=== PATIENT | female | born 1955 | race Asian ===

== ENCOUNTER 2020-02-13 11:10 | Outpatient (REF) | payer MEDICARE, MEDICAID, SELFPAY ==
[2020-02-13 13:27] LABS: Alanine Aminotransferase 13 U/L (0-31); Albumin Level 4.4 g/dL (3.5-5.0); Alkaline Phosphatase 50 U/L (39-117); Anion Gap 12 (12-20); Aspartate Amino Transferase 13 U/L (5-31); Bilirubin Total 0.3 mg/dL (0.0-1.0); Blood Urea Nitrogen 11 mg/dL (9-16); Calcium 9.3 mg/dL (8.4-10.2); Carbon Dioxide 28 mmol/L (22-29); Chloride 105 mmol/L (96-108); Cholesterol 286 mg/dL; Estimated Glomerular Filt Rate > 60; Glucose Fasting 98 mg/dL (60-99); HDL Cholesterol 37 mg/dL; LDL Cholesterol Calculated 211 mg/dl; Potassium 4.7 mmol/l (3.3-5.1); Sodium 140 mmol/L (135-145); Total Protein 6.5 g/dL (6.5-8.0); Triglycerides 192 mg/dL
== END 2020-02-13 11:11 | disposition home or self-care (01) ==
LOC: HO.LAB 11:10
PROVIDERS: PCP Internal Medicine; Visit Provider Internal Medicine
DX: E78.00 Pure hypercholesterolemia, unspecified (principal)
CPT/HCPCS: 36415; 80053; 80061

== ENCOUNTER → 2020-02-19 10:39 | Outpatient (BNVA) | payer MEDICARE, MEDICAID, SELFPAY | PROVIDERS: PCP Internal Medicine; Visit Provider Surgery | DX: Z86.000 Personal history of in-situ neoplasm of breast (principal); Z90.11 Acquired absence of right breast and nipple | CPT/HCPCS: 99213 ==

== ENCOUNTER 2020-07-09 11:22 | Outpatient (REF) | payer MEDICARE, MEDICAID, SELFPAY ==
[2020-07-09 13:47] LABS: Alanine Aminotransferase 15 U/L (0-31); Albumin Level 4.2 g/dL (3.5-5.0); Alkaline Phosphatase 50 U/L (39-117); Anion Gap 13 (12-20); Aspartate Amino Transferase 13 U/L (5-31); Bilirubin Total 0.4 mg/dL (0.0-1.0); Blood Urea Nitrogen 15 mg/dL (9-16); Calcium 8.8 mg/dL (8.4-10.2); Carbon Dioxide 25 mmol/L (22-29); Chloride 104 mmol/L (96-108); Cholesterol 157 mg/dL; Estimated Glomerular Filt Rate > 60; Glucose Fasting 106 mg/dL (60-99); HDL Cholesterol 36 mg/dL; LDL Cholesterol Calculated 95 mg/dl; Potassium 4.8 mmol/L (3.3-5.1); Sodium 137 mmol/L (135-145); Total Protein 6.2 g/dL (6.5-8.0); Triglycerides 133 mg/dL
== END 2020-07-09 11:23 | disposition home or self-care (01) ==
LOC: HO.LAB 11:22
PROVIDERS: PCP Internal Medicine; Visit Provider Internal Medicine
DX: E78.5 Hyperlipidemia, unspecified (principal)
CPT/HCPCS: 36415; 80053; 80061

== ENCOUNTER 2021-01-06 11:14 | Outpatient (REF) | payer MEDICARE, MEDICAID, SELFPAY ==
[2021-01-06 12:37] LABS: Alanine Aminotransferase 21 U/L (0-31); Albumin Level 4.2 g/dL (3.5-5.0); Alkaline Phosphatase 50 U/L (39-117); Anion Gap 11 (12-20); Aspartate Amino Transferase 15 U/L (5-31); Bilirubin Total 0.4 mg/dL (0.0-1.0); Blood Urea Nitrogen 9 mg/dL (9-16); Calcium 9.2 mg/dL (8.4-10.2); Carbon Dioxide 27 mmol/L (22-29); Chloride 109 mmol/L (96-108); Cholesterol 151 mg/dL; Estimated Glomerular Filt Rate > 60; Glucose Fasting 116 mg/dL (60-99); HDL Cholesterol 37 mg/dL; LDL Cholesterol Calculated 89 mg/dl; Potassium 4.9 mmol/L (3.3-5.1); Sodium 142 mmol/L (135-145); Total Protein 6.2 g/dL (6.5-8.0); Triglycerides 129 mg/dL
== END 2021-01-06 11:15 | disposition home or self-care (01) ==
LOC: HO.LAB 11:14
PROVIDERS: PCP Internal Medicine; Visit Provider Internal Medicine
DX: E78.5 Hyperlipidemia, unspecified (principal)
CPT/HCPCS: 36415; 80053; 80061

== ENCOUNTER 2021-03-08 11:57 | Outpatient (REF) | payer MEDICARE, MEDICAID, SELFPAY ==
--- NOTE | ~2021-03-08 | MM_ITS ---
EXAMINATION: MM SCREENING DIGITAL BREAST TOMOSYNTHESIS, LEFT CLINICAL INFORMATION: Screening. Asymptomatic. Status post right mastectomy. COMPARISON: Mammography: 01/30/2020 and studies dating back to 06/01/2011. TECHNIQUE: Digital breast tomosynthesis is performed in both the craniocaudal and mediolateral oblique views along with computer-aided detection (CAD). Synthesized 2D images are generated from the tomosynthesis. FINDINGS: The breasts are heterogeneously dense, which may obscure small masses (ACR BI-RADS breast composition Category c). There is a stable parenchymal pattern within the right breast. Within the deep lateral aspect of the left breast, approximately 3 cm from the nipple, there is a 9 mm ill-defined density for which spot compression view is recommended. MM/MM tomosynthesis screening LT IMPRESSION: Left breast lateral density for further evaluation. ASSESSMENT: BI-RADS 0: Incomplete - Need Additional Imaging Evaluation RECOMMENDATION: 1. Additional views of the left breast. 2. Targeted ultrasound if warranted after review of the additional views. 3. Radiology department staff will contact the patient for additional imaging. This patient's information was entered into a reminder system with a target due date for their next mammogram.
== END 2021-03-08 11:58 | disposition home or self-care (01) ==
LOC: HO.MAMMO 11:57
PROVIDERS: Visit Provider Internal Medicine
DX: Z12.31 Encounter for screening mammogram for malignant neoplasm of breast (principal)
CPT/HCPCS: 77063; 77067

== ENCOUNTER 2021-03-17 14:02 | Outpatient (REF) | payer MEDICARE, MEDICAID, SELFPAY ==
--- NOTE | ~2021-03-17 | MM_ITS ---
EXAMINATION: MM DIAGNOSTIC DIGITAL BREAST TOMOSYNTHESIS, LEFT US DIAGNOSTIC ULTRASOUND BREAST, LEFT CLINICAL INFORMATION: Recall from screening for asymmetric density outer left breast on CC view. Prior history right mastectomy for breast cancer, 2009. History benign left excisional biopsy in 2010. COMPARISON: Mammography: 03/08/2021, 01/30/2020, 08/19/2018, 08/08/2018, 08/06/2017, 06/17/2016, 06/14/2015, 06/10/2014, 06/09/2013 TECHNIQUE: Digital breast tomosynthesis is performed. 2D images are generated from the tomosynthesis. The following views are obtained: rolled CC, spot CC. Ultrasound left breast is targeted to the outer quadrants 1:00 through 5:00 position. Grayscale imaging and color Doppler are performed without and with harmonics. FINDINGS: There are scattered areas of fibroglandular density (ACR BI-RADS breast composition Category b). The additional views show scattered fibroglandular densities similar to prior exams dating back to 2013. There is no developing density or interval mass or architectural abnormality. Ultrasound demonstrates no cystic or solid mass or architectural abnormality. No focal duct ectasia. Results are discussed with the patient and family at time of visit. MM/MM tomosynthesis added views L IMPRESSION: Additional views show no significant changes from prior exams. Unremarkable targeted left breast ultrasound. ASSESSMENT: BI-RADS 2: Benign RECOMMENDATION: Annual mammography. This patient's information was entered into a reminder system with a target due date for their next mammogram.
== END 2021-03-17 14:03 | disposition home or self-care (01) ==
LOC: HO.MAMMO 14:02
PROVIDERS: Visit Provider Internal Medicine
DX: R92.2 Inconclusive mammogram (principal)
CPT/HCPCS: 76642; 77061; 77065

== ENCOUNTER → 2021-04-21 12:55 | Outpatient (BNVA) | payer MEDICARE, MEDICAID, SELFPAY | PROVIDERS: PCP Internal Medicine; Referring Provider Internal Medicine; Visit Provider Surgery | DX: Z90.11 Acquired absence of right breast and nipple (principal) | CPT/HCPCS: 99212 ==

== ENCOUNTER 2021-09-16 10:33 | Outpatient (REF) | payer MEDICARE, MEDICAID, SELFPAY ==
[2021-09-16 11:41] LABS: Alanine Aminotransferase 16 U/L (0-31); Alkaline Phosphatase 46 U/L (39-117); Anion Gap 10 (12-20); Aspartate Amino Transferase 14 U/L (5-31); Bilirubin Total 0.2 mg/dL (0.0-1.0); Blood Urea Nitrogen 20 mg/dL (9-16); Calcium 9.1 mg/dL (8.4-10.2); Carbon Dioxide 26 mmol/L (22-29); Chloride 108 mmol/L (96-108); Cholesterol 142 mg/dL; Estimated Glomerular Filt Rate > 60; Glucose Fasting 125 mg/dL (60-99); HDL Cholesterol 37 mg/dL; LDL Cholesterol Calculated 85 mg/dl; Potassium 4.8 mmol/L (3.3-5.1); Sodium 139 mmol/L (135-145); Total Protein 6.1 g/dL (6.5-8.0); Triglycerides 102 mg/dL
== END 2021-09-16 10:34 | disposition home or self-care (01) ==
LOC: HO.LAB 10:33
PROVIDERS: PCP Internal Medicine; Visit Provider Internal Medicine
DX: R73.02 Impaired glucose tolerance (oral) (principal); E78.5 Hyperlipidemia, unspecified
CPT/HCPCS: 36415; 80053; 80061

== ENCOUNTER 2021-11-10 08:37 | Outpatient (REF) | payer MEDICARE, MEDICAID, SELFPAY ==
--- NOTE | ~2021-11-10 | XR_ITS ---
EXAMINATION: XR KNEE, RIGHT CLINICAL INFORMATION: Pain right knee. COMPARISON: None TECHNIQUE: Four views of the right knee. FINDINGS: The tricompartment joints are maintained normal. There is spurring along the anterior superior patella. No abnormal joint effusion seen. There are no loose bodies. XR/XR knee RT 2V IMPRESSION: Anterior superior patellar enthesophyte. No visible acute fracture or dislocation seen.
== END 2021-11-10 08:38 | disposition home or self-care (01) ==
LOC: HO.XRAY 08:37
PROVIDERS: PCP Internal Medicine; Visit Provider Internal Medicine
DX: M25.561 Pain in right knee (principal)
CPT/HCPCS: 73560

== ENCOUNTER 2021-11-19 13:57 | Inpatient (IN) | payer MEDICARE, MEDICAID, SELFPAY ==
[2021-11-19] VITALS (8 sets, daily range): BP systolic 94–123; BP diastolic 43–82; PULSE 67–88; RESP 13–28; TEMP 36.8–38.4; O2SAT 96–99; BMI 22.6
--- NOTE | ~2021-11-19 | CT_ITS ---
EXAMINATION: CT ABDOMEN AND PELVIS WITHOUT CONTRAST CLINICAL INFORMATION: Diffuse abdominal pain. Nausea and vomiting. COMPARISON: Pelvic ultrasound 11/16/2010 TECHNIQUE: Multidetector volumetric imaging was performed from the superior aspect of the liver through the pubic symphysis. Sagittal and coronal reformatted images were obtained on the technologist's workstation. This CT examination was performed using dose optimization techniques as appropriate, variously including the following: *Automated exposure control *Adjustment of mA and/or kV according to patient size (this includes techniques or standardized protocols for targeted exams where dose is matched to indication/reason for exam; i.e. extremities or head) *Use of iterative reconstruction technique DLP: 368 mGy-cm FINDINGS: LUNG BASES: Partial visualization of at least mild scattered coronary artery calcific atherosclerosis. Normal heart size. No pericardial thickening or fluid collections. The visualized lung bases are clear. LIVER, GALLBLADDER, AND BILIARY TREE: The liver is normal in size, shape, and attenuation. No focal hepatic lesion or biliary ductal dilatation is present. Vague density is noted dependently within the body and fundus of the gallbladder (series 3 image 29). Findings may represent partial visualization of cholelithiasis. No pericholecystic fluid collections identified. No biliary duct dilatation visualized. PANCREAS: Unremarkable. SPLEEN: Unremarkable. ADRENAL GLANDS: Unremarkable. KIDNEYS AND URETERS: No hydronephrosis or perinephric inflammatory changes. No urolithiasis. No ureterectasis. BLADDER: Diffuse mural thickening of the urinary bladder (series 5 image 31) to a width of approximately 5 mm. No urinary bladder calculi. GASTROINTESTINAL TRACT: The appendix is not definitively visualized. A structure which may represent partial visualization of the appendix is noted (series 3 image 66, series 5 image 32). No pericecal inflammatory changes are noted. Trace physiologic free intraperitoneal fluid is present within the pelvis. No colonic diverticulosis noted. The lower abdominal quadrants are suboptimally visualized secondary to motion artifact (for example, series 3 image 54) ABDOMINAL WALL: No significant hernia is appreciated. LYMPH NODES: Normal. VASCULAR: Mild to moderate scattered calcific atherosclerosis. PELVIC VISCERA: Uterus demonstrates a bulky multilobulated contour with areas of scattered dystrophic calcification suspicious for fibroids. OSSEOUS STRUCTURES: Mild-moderate multilevel chronic spondylosis of the visualized thoracic and lumbar spine. Partial visualization of a moderate broad-based disc bulge at L5-S1. CT/CT abdomen pelvis wo con IMPRESSION: *Diffuse mural thickening of the urinary bladder. Findings may represent acute infectious cystitis. Chronic cystitis cystica could have a similar appearance. *No hydronephrosis. No urolithiasis. *The appendix is not visualized. The lower abdominal quadrants are suboptimally visualized secondary to motion artifact and this exam may be insensitive in the detection of acute appendicitis. *Fibroid uterus. *Multilevel chronic spondylosis of the visualized thoracic and lumbar spine including a partially visualized moderate posterior broad-based disc bulge L5-S1. *Possible cholelithiasis.
[2021-11-19 15:12] LABS: Hematocrit 30.9 % (37.0-47.0); Hemoglobin 10.6 g/dl (12.0-16.0); Mean Corpuscular HGB Conc 34.3 g/dl (31.0-35.0); Mean Corpuscular Hemoglobin 29.4 pg (27.0-33.0); Mean Corpuscular Volume 85.8 fL (80.0-98.0); Mean Platelet Volume 9.6 fL (9.4-12.3); Platelet Count 291 X10*3/uL (160-400); Red Cell Distribution Width 13.2 % (11.0-16.0); White Blood Count 14.4 X10*3/uL (4.8-10.8)
[2021-11-19 15:30] LABS: Anion Gap 14 (12-20); Blood Urea Nitrogen 12 mg/dL (9-16); Calcium 8.4 mg/dL (8.4-10.2); Carbon Dioxide 22 mmol/L (22-29); Chloride 98 mmol/L (96-108); Creatinine Clr Calc Pharmacy 48.7; Estimated Glomerular Filt Rate > 60; Glucose Random 275 mg/dL (60-115); Lipase 15 U/L (8-78); Potassium 4.7 mmol/L (3.3-5.1); Sodium 129 mmol/L (135-145)
--- NOTE | 2021-11-19 17:53 | ED.ABDPAIN ---
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 No diarrhea, constipation, urinary symptoms. Patient reports tactile temps and chills. Patient denies any alcohol use. Related Data Home Medications Medication Instructions Recorded Confirmed celecoxib 100 mg capsule 100 mg PO BID PRN Pain 11/19/21 11/19/21 ibuprofen 600 mg tablet 1 tab PO Q6-8H PRN Pain 11/19/21 11/19/21 simvastatin 40 mg tablet 1 tab PO BEDTIME 11/19/21 11/19/21 Allergies Allergy/AdvReac Type Severity Reaction Status Date / Time aspirin [Aspirin] Allergy Intermediate GI UPSET Verified 11/11/21 14:28 Review of Systems Review of Systems Yes all other systems are reviewed and are negative Constitutional: Reports no additional constitutional complaints, Denies body ache(s), Reports chills, Reports fever(s) (tactile), Denies headache(s) and Denies weakness Eyes: Reports no additional eye complaints and Denies change in vision Reports system reviewed and no additional complaints, except as documented, Denies dizziness, Denies headache(s), Denies nasal congestion, Denies nasal discharge and Denies neck pain Cardiovascular: Reports no additional cardiovascular complaints, Denies chest pain, Denies leg edema and Denies dyspnea Respiratory: Reports no additional respiratory complaints, Denies cough and Denies dyspnea Gastrointestinal: Reports no additional gastrointestinal complaints, Reports abdominal pain, Denies diarrhea, Reports nausea and Reports vomiting Genitourinary: Reports no additional female genitourinary complaints and Denies urinary incontinence Musculoskeletal: Reports no additional musculoskeletal complaints, Denies back pain, Denies arthralgias, Denies joint swelling, Denies neck pain, Denies numbness and Denies tingling Skin/Breast: Reports system reviewed and no additional complaints, except as docu and Denies rash Reports system reviewed and no additional complaints, except as documented, Denies dizziness, Denies headache(s), Denies numbness, Denies tingling and Denies weakness [facility] Past Medical History Attestation statement: The following information was validated with the patient. Source: old records reviewed and nursing notes reviewed Medical History Anxiety Ductal carcinoma in situ (DCIS) of right breast Dyslipidemia Effusion, right knee Impaired glucose tolerance Insomnia Mild major depression, single episode Surgical History History of lumpectomy of right breast History of total abdominal hysterectomy Family History Family History Mother Diabetes Father No problems noted. Brother No problems noted. Brother No problems noted. Brother No problems noted. Sister No problems noted. Social History Social History Housing: Apartment Alcohol intake: never Patient Tobacco Use Status: Never used Tobacco e-Cigarette/Vaping Use: Never Used Second Hand Smoke Exposure: No Advance Directives: No Advance Directives Information Provided: No service: No Current occupational status: employed Current occupational exposures/hazards: No Cognitive needs: No Hearing needs: No Vision needs: No Physical Exam ED Vital Signs: Vital Signs - 24 hr 11/19/21 14:15 11/19/21 18:20 11/19/21 18:40 Temperature 98.2 F 101.1 F H Pulse Rate 88 88 80 Respiratory Rate 18 24 H 28 H Blood Pressure 123/82 119/47 L 106/49 L Pulse Oximetry 97 99 98 Oxygen Delivery Method Room Air Room Air Room Air 11/19/21 19:34 11/19/21 20:35 11/19/21 20:52 Temperature 99.9 F Pulse Rate 68 67 Respiratory Rate 22 H 24 H Blood Pressure 99/43 L 94/46 L 101/47 L Pulse Oximetry 96 96 Oxygen Delivery Method Room Air Room Air BMI result Body Mass Index 22.6 Const Other: +in pain General: alert Orientation/consciousness: patient oriented x3 Limitations: language barrier HENMT Head: Yes normal to inspection Ears: hearing grossly normal bilaterally Eyes General: appearance normal, both eyes and all related structures Pupils: Equal, round and reactive pupils present Neck Neck: Yes normal visual inspection, Yes full ROM and Yes no lymphadenopathy Chest Chest palpation & inspection: normal inspection of the chest Resp Effort & Inspection: normal respiratory effort Auscultation: clear to auscultation bilaterally Cardio Rate: regular rate Rhythm: regular rhythm Peripheral pulses: Peripheral pulses 2+ throughout GI Inspection: Yes normal to inspection Palpation (GI): Soft to palpation and Tenderness to palpation present (GI) (Diffusely tender. +guarding. No rebound ) Auscultation: normal bowel sounds General: Yes no CVA tenderness Back/Spine/Pelvis Back: no CVA tenderness Thoracic/Lumbar Spine: thoracic and lumbar spine normal to inspection Skin General skin exam: no rashes or lesions noted Neuro General: patient oriented x3 and moves all extremities Cranial nerves: Yes Equal, round and reactive pupils present Cognition (Neuro): normal cognition Gait exam (Neuro): Normal gait present Extrem General: Yes normal to inspection, Yes no pedal edema and Yes no calf tenderness Course Course Course Narrative: 1830-patient has fever 101. She has tachypnea. At this time infection suspected. Antibiotics ordered Reevaluation(s) Reevaluation #1: Nursing informed me that the patient had a blood pressure of 99/43. Patient to receive a normal saline bolus 30 cc/kilos for total 1600ml. She did receive 1 L of saline already. Will give additional 600 mL. Nursing to recheck blood pressure post fluids Time: 19:45 Reevaluation #2: Blood pressure is 101/47. Fluids are still infusing. Patient tells me her normal blood pressure is 100 systolic. Family tells me for the last 3 days the patient has had very little p.o. intake. She has also been vomiting and they were concerned that she is dehydrated. Blood pressure is likely secondary to dehydration. CT is concerning for cystitis. UA is infected. Patient will need admission Time: 20:50 Reevaluation #3: I spoke to Dr. Kumar who accepted patient for admission Time: 21:00 MDM - Abdominal Pain MDM Narrative Medical decision making narrative: 66-year-old female here with diffuse abdominal pain, vomiting for 3 days with tactile temps and chills. On exam patient has diffuse tenderness with some guarding but no rebound. Will need labs, UA, CT, COVID screen Medical Records Attestation: I reviewed the patient's medical records. Lab Data Attestation: I reviewed the patient's lab results. Result diagrams: 11/19/21 14:44 11/19/21 14:44 Labs: Lab Results 11/19/21 11/19/21 11/19/21 Range/Units 14:44 14:44 18:00 WBC 14.4 H (4.8-10.8) X10*3/uL RBC 3.60 L (4.20-5.50) X10*6/uL Hgb 10.6 L (12.0-16.0) g/dl Hct 30.9 L (37.0-47.0) % MCV 85.8 (80.0-98.0) fL MCH 29.4 (27.0-33.0) pg MCHC 34.3 (31.0-35.0) g/dl RDW 13.2 (11.0-16.0) % Plt Count 291 (160-400) X10*3/uL MPV 9.6 (9.4-12.3) fL Absolute Nucleated RBC 0.000 (0.0-0.012) X10*3/uL Nucleated RBC % (auto) 0.0 (0.0-0.2) /100WBC PT (10.0-13.1) SEC INR (0.9-1.1) Sodium 129 L (135-145) mmol/L Potassium 4.7 (3.3-5.1) mmol/L Chloride 98 (96-108) mmol/L Carbon Dioxide 22 (22-29) mmol/L Anion Gap 14 (12-20) BUN 12 (9-16) mg/dL Creatinine 0.88 (0.5-1.4) mg/dL Estim Creat Clear Calc 48.7 Estimated GFR > 60 Random Glucose 275 H (60-115) mg/dL Lactic Acid (0.5-2.0) mmol/L Calcium 8.4 D (8.4-10.2) mg/dL Magnesium (1.6-2.6) mg/dL Total Bilirubin (0.0-1.0) mg/dL Direct Bilirubin (0.0-0.5) mg/dL AST (5-31) U/L ALT (0-31) U/L Alkaline Phosphatase (39-117) U/L Total Protein (6.5-8.0) g/dL Albumin (3.5-5.0) g/dL Lipase 15 (8-78) U/L Urine Color Urine Appearance Urine pH (5.0-8.0) Ur Specific [place] (1.005-1.025) Urine Protein (NEG-TRACE) MG/DL Urine Glucose (UA) (NEG) MG/DL Urine Ketones (NEG) MG/DL Urine Blood (NEG) Urine Nitrite (NEG) Ur Leukocyte Esterase (NEG) Urine RBC (0) /HPF Urine WBC (0-4) /HPF Ur Squamous Epith Cells /LPF Urine Bacteria /LPF COVID-19 (MELONY) Negative (Negative) COVID-19 Clin Com See Note 11/19/21 11/19/21 11/19/21 Range/Units 18:09 18:09 18:09 WBC (4.8-10.8) X10*3/uL RBC (4.20-5.50) X10*6/uL Hgb (12.0-16.0) g/dl Hct (37.0-47.0) % MCV (80.0-98.0) fL MCH (27.0-33.0) pg MCHC (31.0-35.0) g/dl RDW (11.0-16.0) % Plt Count (160-400) X10*3/uL MPV (9.4-12.3) fL Absolute Nucleated RBC (0.0-0.012) X10*3/uL Nucleated RBC % (auto) (0.0-0.2) /100WBC PT 13.0 (10.0-13.1) SEC INR 1.1 (0.9-1.1) Sodium (135-145) mmol/L Potassium (3.3-5.1) mmol/L Chloride (96-108) mmol/L Carbon Dioxide (22-29) mmol/L Anion Gap (12-20) BUN (9-16) mg/dL Creatinine (0.5-1.4) mg/dL Estim Creat Clear Calc Estimated GFR Random Glucose (60-115) mg/dL Lactic Acid 1.5 (0.5-2.0) mmol/L Calcium (8.4-10.2) mg/dL Magnesium 1.9 (1.6-2.6) mg/dL Total Bilirubin 0.4 (0.0-1.0) mg/dL Direct Bilirubin 0.2 (0.0-0.5) mg/dL AST 40 H D (5-31) U/L ALT 45 H (0-31) U/L Alkaline Phosphatase 60 D (39-117) U/L Total Protein 6.6 (6.5-8.0) g/dL Albumin 3.9 (3.5-5.0) g/dL Lipase (8-78) U/L Urine Color Urine Appearance Urine pH (5.0-8.0) Ur Specific [place] (1.005-1.025) Urine Protein (NEG-TRACE) MG/DL Urine Glucose (UA) (NEG) MG/DL Urine Ketones (NEG) MG/DL Urine Blood (NEG) Urine Nitrite (NEG) Ur Leukocyte Esterase (NEG) Urine RBC (0) /HPF Urine WBC (0-4) /HPF Ur Squamous Epith Cells /LPF Urine Bacteria /LPF COVID-19 (MELONY) (Negative) COVID-19 Clin Com 11/19/21 Range/Units 20:16 WBC (4.8-10.8) X10*3/uL RBC (4.20-5.50) X10*6/uL Hgb (12.0-16.0) g/dl Hct (37.0-47.0) % MCV (80.0-98.0) fL MCH (27.0-33.0) pg MCHC (31.0-35.0) g/dl RDW (11.0-16.0) % Plt Count (160-400) X10*3/uL MPV (9.4-12.3) fL Absolute Nucleated RBC (0.0-0.012) X10*3/uL Nucleated RBC % (auto) (0.0-0.2) /100WBC PT (10.0-13.1) SEC INR (0.9-1.1) Sodium (135-145) mmol/L Potassium (3.3-5.1) mmol/L Chloride (96-108) mmol/L Carbon Dioxide (22-29) mmol/L Anion Gap (12-20) BUN (9-16) mg/dL Creatinine (0.5-1.4) mg/dL Estim Creat Clear Calc Estimated GFR Random Glucose (60-115) mg/dL Lactic Acid (0.5-2.0) mmol/L Calcium (8.4-10.2) mg/dL Magnesium (1.6-2.6) mg/dL Total Bilirubin (0.0-1.0) mg/dL Direct Bilirubin (0.0-0.5) mg/dL AST (5-31) U/L ALT (0-31) U/L Alkaline Phosphatase (39-117) U/L Total Protein (6.5-8.0) g/dL Albumin (3.5-5.0) g/dL Lipase (8-78) U/L Urine Color YELLOW Urine Appearance HAZY Urine pH 5.5 (5.0-8.0) Ur Specific [place] 1.020 (1.005-1.025) Urine Protein 2+ H (NEG-TRACE) MG/DL Urine Glucose (UA) NEG (NEG) MG/DL Urine Ketones NEG (NEG) MG/DL Urine Blood 3+ H (NEG) Urine Nitrite POS H (NEG) Ur Leukocyte Esterase 2+ H (NEG) Urine RBC 5-9 H (0) /HPF Urine WBC 30-49 H (0-4) /HPF Ur Squamous Epith Cells 1+ /LPF Urine Bacteria 2+ /LPF COVID-19 (MELONY) (Negative) COVID-19 Clin Com Imaging Data CT scan - abdomen: Attestation: I personally reviewed and interpreted this imaging study as follows: Radiologist's impression: FINDINGS: LUNG BASES: Partial visualization of at least mild scattered coronary artery calcific atherosclerosis. Normal heart size. No pericardial thickening or fluid collections. The visualized lung bases are clear.? LIVER, GALLBLADDER, AND BILIARY TREE: The liver is normal in size, shape, and attenuation. No focal hepatic lesion or biliary ductal dilatation is present. Vague density is noted dependently within the body and fundus of the gallbladder (series 3 image 29). Findings may represent partial visualization of cholelithiasis. No pericholecystic fluid collections identified. No biliary duct dilatation visualized.? PANCREAS: Unremarkable.? SPLEEN: Unremarkable.? ADRENAL GLANDS: Unremarkable.? KIDNEYS AND URETERS: No hydronephrosis or perinephric inflammatory changes. No urolithiasis. No ureterectasis.? BLADDER: Diffuse mural thickening of the urinary bladder (series 5 image 31) to a width of approximately 5 mm. No urinary bladder calculi. ? GASTROINTESTINAL TRACT: The appendix is not definitively visualized. A structure which may represent partial visualization of the appendix is noted (series 3 image 66, series 5 image 32). No pericecal inflammatory changes are noted. Trace physiologic free intraperitoneal fluid is present within the pelvis. No colonic diverticulosis noted. The lower abdominal quadrants are suboptimally visualized secondary to motion artifact (for example, series 3 image 54) ABDOMINAL WALL: No significant hernia is appreciated.? LYMPH NODES: Normal. VASCULAR: Mild to moderate scattered calcific atherosclerosis. PELVIC VISCERA: Uterus demonstrates a bulky multilobulated contour with areas of scattered dystrophic calcification suspicious for fibroids. OSSEOUS STRUCTURES: Mild-moderate multilevel chronic spondylosis of the visualized thoracic and lumbar spine. Partial visualization of a moderate broad-based disc bulge at L5-S1.? CT/CT abdomen pelvis wo con IMPRESSION: *Diffuse mural thickening of the urinary bladder. Findings may represent acute infectious cystitis. Chronic cystitis cystica could have a similar appearance. *No hydronephrosis. No urolithiasis. *The appendix is not visualized. The lower abdominal quadrants are suboptimally visualized secondary to motion artifact and this exam may be insensitive in the detection of acute appendicitis. *Fibroid uterus. *Multilevel chronic spondylosis of the visualized thoracic and lumbar spine including a partially visualized moderate posterior broad-based disc bulge L5-S1. *Possible cholelithiasis. ? Discharge Plan Discharge Clinical Impression: UTI (urinary tract infection), Leukocytosis Patient Disposition: Admitted As Inpatient
[2021-11-19] MEDS: ondansetron HCL 4 MG/2 ML VIAL IVPUSH (18:23)
[2021-11-19] MEDS: 0.9 % Sodium Chloride 1,000 ML 999 ML IV (18:23)
[2021-11-19] MEDS: Morphine Sulfate 4 MG/ML CARTRIDGE IVPUSH (18:24)
[2021-11-19 18:26] LABS: INTERNATIONAL NORM RATIO 1.1 (0.9-1.1)
[2021-11-19 18:28] LABS: Lactic Acid 1.5 mmol/L (0.5-2.0)
[2021-11-19 18:34] LABS: Alanine Aminotransferase 45 U/L (0-31); Albumin Level 3.9 g/dL (3.5-5.0); Alkaline Phosphatase 60 U/L (39-117); Aspartate Amino Transferase 40 U/L (5-31); Bilirubin Direct 0.2 mg/dL (0.0-0.5); Bilirubin Total 0.4 mg/dL (0.0-1.0); Magnesium 1.9 mg/dL (1.6-2.6); Total Protein 6.6 g/dL (6.5-8.0)
[2021-11-19 18:34] LABS: COVID-19 Test Negative (Negative)
[2021-11-19] MEDS: Acetaminophen 325 MG TABLET 975 MG PO (18:37)
[2021-11-19] MEDS: Piperacillin Sodium/Tazobactam 3.375 GM in 0.9 % Sodium Chloride 50 ML IV (18:39)
[2021-11-19 20:24] LABS: Appearance Urine HAZY; Color Urine YELLOW; Glucose Urine UA NEG (NEG); Leukocyte Esterase Urine 2+ (NEG); Nitrite Urine POS (NEG); PH 5.5 (5.0-8.0); UACC Culture Trigger YES; Urine Blood 3+ (NEG); Urine Ketones NEG (NEG); Urine Protein 2+ MG/DL (NEG-TRACE)
[2021-11-19 20:33] LABS: Bacteria Urine 2+ /LPF; Squamous Epithelial Cell Urine 1+ /LPF; WBC Urine 30-49 /HPF (0-4)
--- NOTE | 2021-11-19 20:58 | PM.IMHP ---
History of Present Illness Date of Service: 11/19/21 Chief Complaint: Abdominal pain 67-year-old female with a past medical history of hyperlipidemia of breast cancer presented to the hospital with the above-noted nausea vomiting/abdominal pain. Patient reports the past 3 days she has been having nausea/vomiting/abdominal discomfort. Denies any blood in the vomitus. Reports abdominal pain is located in the lower quadrant; denies any diarrhea. Denies any Cough or sputum production. Reports subjective fevers and chills. Denies any in the urine. Reports urinary frequency. Also reports that she has not been eating drinking for the past 3 days. Review of all other systems is negative except mentioned above ER course: Per ER team patient noted mild abdominal discomfort; CT scan consistent with CT status; urinalysis abnormal consistent with UTI. Patient was given Zosyn. Patient was also qualified for sepsis protocol; received 30 cc/kg IV fluids. Admitted for further management. [facility] Medical History Anxiety Ductal carcinoma in situ (DCIS) of right breast Dyslipidemia Effusion, right knee Impaired glucose tolerance Insomnia Mild major depression, single episode Family History Mother Diabetes Father No problems noted. Brother No problems noted. Brother No problems noted. Brother No problems noted. Sister No problems noted. Surgical History History of lumpectomy of right breast History of total abdominal hysterectomy Social History Housing: Apartment Alcohol intake: never Patient Tobacco Use Status: Never used Tobacco e-Cigarette/Vaping Use: Never Used Second Hand Smoke Exposure: No Advance Directives: No Advance Directives Information Provided: No service: No Current occupational status: employed Current occupational exposures/hazards: No Cognitive needs: No Hearing needs: No Vision needs: No Meds Allergies Allergy/AdvReac Type Severity Reaction Status Date / Time aspirin [Aspirin] Allergy Intermediate GI UPSET Verified 11/11/21 14:28 Home Medications Medication Instructions Recorded Confirmed Last Taken Type celecoxib 100 mg capsule 100 mg PO BID PRN Pain 11/19/21 11/19/21 Unknown History ibuprofen 600 mg tablet 1 tab PO Q6-8H PRN Pain 11/19/21 11/19/21 Unknown History simvastatin 40 mg tablet 1 tab PO BEDTIME 11/19/21 11/19/21 Unknown History Physical Exam Vital Signs and Narrative: Vital Signs: Last Vital Signs Temp 99.9 F 11/19/21 19:34 Pulse 67 11/19/21 20:35 Resp 24 H 11/19/21 20:35 BP 101/47 L 11/19/21 20:52 Pulse Ox 96 11/19/21 20:35 O2 Del Method 11/19/21 20:35 BMI result Body Mass Index 22.6 Gen: Appears be in no acute distress HEENT: NCAT, Moist mucosa. Pulmonary: Vesicular breath sounds, fair air entry CVS: Normal S1-S2 Abdomen: BS+, Soft, Nontender Extremities: Warm well perfused Neuro: Alert and awake. Results Labs CBC and Chem 7: 11/19/21 14:44 11/19/21 14:44 Labs: Laboratory Results - last 24 hr 11/19/21 11/19/21 11/19/21 14:44 14:44 18:00 MCV 85.8 MCH 29.4 MCHC 34.3 RDW 13.2 Plt Count 291 MPV 9.6 Absolute Nucleated RBC 0.000 Nucleated RBC % (auto) 0.0 PT INR Anion Gap 14 Estim Creat Clear Calc 48.7 Estimated GFR > 60 Random Glucose 275 H Lactic Acid Calcium 8.4 D Magnesium Total Bilirubin Direct Bilirubin AST ALT Alkaline Phosphatase Total Protein Albumin Lipase 15 Urine Color Urine Appearance Urine pH Ur Specific [place] Urine Protein Urine Glucose (UA) Urine Ketones Urine Blood Urine Nitrite Ur Leukocyte Esterase Urine RBC Urine WBC Ur Squamous Epith Cells Urine Bacteria COVID-19 (MELONY) Negative COVID-19 Clin Com See Note 11/19/21 11/19/21 11/19/21 18:09 18:09 18:09 MCV MCH MCHC RDW Plt Count MPV Absolute Nucleated RBC Nucleated RBC % (auto) PT 13.0 INR 1.1 Anion Gap Estim Creat Clear Calc Estimated GFR Random Glucose Lactic Acid 1.5 Calcium Magnesium 1.9 Total Bilirubin 0.4 Direct Bilirubin 0.2 AST 40 H D ALT 45 H Alkaline Phosphatase 60 D Total Protein 6.6 Albumin 3.9 Lipase Urine Color Urine Appearance Urine pH Ur Specific [place] Urine Protein Urine Glucose (UA) Urine Ketones Urine Blood Urine Nitrite Ur Leukocyte Esterase Urine RBC Urine WBC Ur Squamous Epith Cells Urine Bacteria COVID-19 (MELONY) COVID-19 Clin Com 11/19/21 20:16 MCV MCH MCHC RDW Plt Count MPV Absolute Nucleated RBC Nucleated RBC % (auto) PT INR Anion Gap Estim Creat Clear Calc Estimated GFR Random Glucose Lactic Acid Calcium Magnesium Total Bilirubin Direct Bilirubin AST ALT Alkaline Phosphatase Total Protein Albumin Lipase Urine Color YELLOW Urine Appearance HAZY Urine pH 5.5 Ur Specific [place] 1.020 Urine Protein 2+ H Urine Glucose (UA) NEG Urine Ketones NEG Urine Blood 3+ H Urine Nitrite POS H Ur Leukocyte Esterase 2+ H Urine RBC 5-9 H Urine WBC 30-49 H Ur Squamous Epith Cells 1+ Urine Bacteria 2+ COVID-19 (MELONY) COVID-19 Clin Com Imaging Radiologist's Impressions: Impressions Abdomen/Pelvis CT 11/19/21 18:22 IMPRESSION: *Diffuse mural thickening of the urinary bladder. Findings may represent acute infectious cystitis. Chronic cystitis cystica could have a similar appearance. *No hydronephrosis. No urolithiasis. *The appendix is not visualized. The lower abdominal quadrants are suboptimally visualized secondary to motion artifact and this exam may be insensitive in the detection of acute appendicitis. *Fibroid uterus. *Multilevel chronic spondylosis of the visualized thoracic and lumbar spine including a partially visualized moderate posterior broad-based disc bulge L5-S1. *Possible cholelithiasis. Assessment and Plan (1) UTI (urinary tract infection): Status: Acute Plan 67-year-old female with a past medical history of hyperlipidemia of breast cancer presented to the hospital with the above-noted nausea vomiting/abdominal pain. Noted to have UTI. Admitted for further management. UTI: Continue ceftriaxone Follow-up cultures Hyponatremia: Likely low solute state. Patient received IV fluids. Follow-up sodium levels. History of hyperlipidemia: Continue home statin DVT prophylaxis: Subcu heparin Code status: Full code Quality Stroke Does the patient have a stroke diagnosis?: No VTE Prior VTE?: No VTE Risk Level:: Medical - moderate - high VTE Device Contraindication: Treatment Not Indicated VTE Drug Contraindication: N/A - Med Ordered
--- NOTE | 2021-11-19 21:21 | PHA.MEDREC ---
Pharmacy Consult ? Medication Reconciliation Pharmacy has reviewed the medication reconciliation completed by Rowan. There are no remarkable issues for provider's attention. Sharee Pedersen, JoseD
[2021-11-19] MEDS: 0.9 % Sodium Chloride 1,000 ML 50 ML IVCONT (22:18)
[2021-11-20] MEDS: cefTRIAXone sodium 1 GM in 0.9 % Sodium Chloride 50 ML IV ×2 (00:10→23:27)
--- NOTE | 2021-11-20 00:13 | PC.NURSE ---
pt sleeping, in no distress
--- NOTE | 2021-11-20 04:45 | PC.NURSE ---
pt asked to use BR. pt disconnected from monitor and IV, ambulated to BR with steady gait. no c/o pain or dizziness upon returning to room
[2021-11-20 05:26] VITALS: BP 113/48; PULSE 79; RESP 26; O2SAT 96
[2021-11-20 06:48] LABS: MANUAL DIFF FLAG NO
[2021-11-20 07:10] LABS: Basophils Percent Auto 0.1 % (0-2); Hematocrit 27.1 % (37.0-47.0); Hemoglobin 9.4 g/dl (12.0-16.0); Imm Gran Abs Auto 0.07 X10*3/uL (0.00-0.03); Imm Gran Pct Auto 0.6 % (0.0-0.4); Lymphocytes Absolute Auto 1.1 X10*3/uL (1.2-4.9); Lymphocytes Percent Auto 9.2 % (20-40); Mean Corpuscular HGB Conc 34.7 g/dl (31.0-35.0); Mean Corpuscular Hemoglobin 29.6 pg (27.0-33.0); Mean Corpuscular Volume 85.2 fL (80.0-98.0); Mean Platelet Volume 9.6 fL (9.4-12.3); Monocytes Absolute Auto 1.2 X10*3/uL (0.1-1.2); Monocytes Percent Auto 9.5 % (2-11); Neutrophils Percent Auto 80.6 % (45-73); Platelet Count 271 X10*3/uL (160-400); Red Blood Count 3.18 X10*6/uL (4.20-5.50); Red Cell Distribution Width 13.5 % (11.0-16.0); White Blood Count 12.4 X10*3/uL (4.8-10.8)
[2021-11-20 07:15] VITALS: BP 124/53; PULSE 79; RESP 22; TEMP 37.2; O2SAT 94
[2021-11-20 07:20] LABS: Anion Gap 13 (12-20); Blood Urea Nitrogen 10 mg/dL (9-16); Calcium 7.5 mg/dL (8.4-10.2); Carbon Dioxide 19 mmol/L (22-29); Chloride 105 mmol/L (96-108); Creatinine Clr Calc Pharmacy 58.7; Estimated Glomerular Filt Rate > 60; Glucose Random 116 mg/dL (60-115); Potassium 4.5 mmol/L (3.3-5.1); Sodium 132 mmol/L (135-145)
[2021-11-20] MEDS: Heparin Sodium,Porcine 5,000 UNIT/ML VIAL 5000 UNIT SUBCUT ×2 (08:02→20:59)
[2021-11-20] MEDS: 0.9 % Sodium Chloride Flush 3 ML SYRINGE IVFLUSH (08:02)
--- NOTE | 2021-11-20 14:03 | P.PNIM_ITS ---
Subjective Subjective Date of Service: 11/20/21 Physical Exam Vital Signs: Vital Signs: Last Vital Signs Temp 99.0 F 11/20/21 07:15 Pulse 79 11/20/21 07:15 Resp 22 H 11/20/21 07:15 BP 124/53 L 11/20/21 07:15 Pulse Ox 94 11/20/21 07:15 O2 Del Method 11/20/21 07:15 BMI result Body Mass Index 22.6 Objective Data Active Medications Acetaminophen (Acetaminophen 325 Mg Tablet) 650 mg PO Q6H PRN PRN Reason: Pain, Mild (Pain Scale 1-3) Heparin Sodium (Porcine) (Heparin Sodium,Porcine 5,000 Unit/Ml Vial) 5,000 unit SUBCUT Q12H [facility] Last Admin: 11/20/21 08:02 Dose: 5,000 unit Documented By: TONY Sodium Chloride (Ns) 1,000 mls @ 50 mls/hr IVCONT .Q20H [facility] Last Admin: 11/19/21 22:18 Dose: 50 mls/hr Documented By: CORTEZ Ceftriaxone Sodium 1 gm/ (Sodium Chloride) 50 mls @ 100 mls/hr IV Q24H [facility] Last Infusion: 11/20/21 00:40 Dose: 0 mls/hr Documented By: JUSTINA Melatonin (Melatonin 3 Mg Tablet) 6 mg PO BEDTIME PRN PRN Reason: Insomnia Senna (Sennosides 8.6 Mg Tablet) 17.2 mg PO BEDTIME PRN PRN Reason: Constipation Sodium Chloride (0.9 % Sodium Chloride Flush 3 Ml Syringe) 3 ml IVFLUSH QSHIFT [facility] Last Admin: 11/20/21 08:02 Dose: 3 ml Documented By: TONY Labs CBC & Chem 7: 11/20/21 06:07 11/20/21 06:07 Labs: Laboratory Results - last 24 hr 11/19/21 11/19/21 11/19/21 14:44 14:44 18:00 MCV 85.8 MCH 29.4 MCHC 34.3 RDW 13.2 Plt Count 291 MPV 9.6 Immature Gran % (Auto) Neut % (Auto) Lymph % (Auto) [place] % (Auto) Eos % (Auto) Baso % (Auto) Lymph # (Auto) [place] # (Auto) Eos # (Auto) Baso # (Auto) Abs Immat Gran (auto) Absolute Neuts (auto) Absolute Nucleated RBC 0.000 Nucleated RBC % (auto) 0.0 PT INR Anion Gap 14 Estim Creat Clear Calc 48.7 Estimated GFR > 60 Random Glucose 275 H Lactic Acid Calcium 8.4 D Magnesium Total Bilirubin Direct Bilirubin AST ALT Alkaline Phosphatase Total Protein Albumin Lipase 15 Urine Color Urine Appearance Urine pH Ur Specific [place] Urine Protein Urine Glucose (UA) Urine Ketones Urine Blood Urine Nitrite Ur Leukocyte Esterase Urine RBC Urine WBC Ur Squamous Epith Cells Urine Bacteria COVID-19 (MELONY) Negative COVID-19 Clin Com See Note 11/19/21 11/19/21 11/19/21 18:09 18:09 18:09 MCV MCH MCHC RDW Plt Count MPV Immature Gran % (Auto) Neut % (Auto) Lymph % (Auto) [place] % (Auto) Eos % (Auto) Baso % (Auto) Lymph # (Auto) [place] # (Auto) Eos # (Auto) Baso # (Auto) Abs Immat Gran (auto) Absolute Neuts (auto) Absolute Nucleated RBC Nucleated RBC % (auto) PT 13.0 INR 1.1 Anion Gap Estim Creat Clear Calc Estimated GFR Random Glucose Lactic Acid 1.5 Calcium Magnesium 1.9 Total Bilirubin 0.4 Direct Bilirubin 0.2 AST 40 H D ALT 45 H Alkaline Phosphatase 60 D Total Protein 6.6 Albumin 3.9 Lipase Urine Color Urine Appearance Urine pH Ur Specific [place] Urine Protein Urine Glucose (UA) Urine Ketones Urine Blood Urine Nitrite Ur Leukocyte Esterase Urine RBC Urine WBC Ur Squamous Epith Cells Urine Bacteria COVID-19 (MELONY) COVID-19 Clin Com 11/19/21 11/20/21 11/20/21 20:16 06:07 06:07 MCV 85.2 MCH 29.6 MCHC 34.7 RDW 13.5 Plt Count 271 MPV 9.6 Immature Gran % (Auto) 0.6 H Neut % (Auto) 80.6 H Lymph % (Auto) 9.2 L [place] % (Auto) 9.5 Eos % (Auto) 0.0 Baso % (Auto) 0.1 Lymph # (Auto) 1.1 L [place] # (Auto) 1.2 Eos # (Auto) 0.0 Baso # (Auto) 0.0 Abs Immat Gran (auto) 0.07 H Absolute Neuts (auto) 10.0 H Absolute Nucleated RBC 0.000 Nucleated RBC % (auto) 0.0 PT INR Anion Gap 13 Estim Creat Clear Calc 58.7 Estimated GFR > 60 Random Glucose 116 H Lactic Acid Calcium 7.5 L D Magnesium Total Bilirubin Direct Bilirubin AST ALT Alkaline Phosphatase Total Protein Albumin Lipase Urine Color YELLOW Urine Appearance HAZY Urine pH 5.5 Ur Specific [place] 1.020 Urine Protein 2+ H Urine Glucose (UA) NEG Urine Ketones NEG Urine Blood 3+ H Urine Nitrite POS H Ur Leukocyte Esterase 2+ H Urine RBC 5-9 H Urine WBC 30-49 H Ur Squamous Epith Cells 1+ Urine Bacteria 2+ COVID-19 (MELONY) COVID-19 Clin Com Microbiology Microbiology Results: Microbiology 11/19/21 20:26 Urine Culture - Preliminary Urine clean catch - Urine tobin top Gram negative maria luisa 11/19/21 18:09 Blood Culture - Preliminary Blood - Venous Prelim: GNR Gram Stain only Assessment and Plan (1) UTI (urinary tract infection): Status: Acute Plan 67-year-old female with a past medical history of hyperlipidemia of breast cancer presented to the hospital with the above-noted nausea vomiting/abdominal pain. Noted to have UTI.? Admitted for further management. ? GNR bacteremia Continue Rocephin follow final cultures GNR UTI Continue ceftriaxone Follow-up final cultures Hyponatremia Likely low solute state.? Patient received IV fluids.? Follow-up sodium levels.? History of hyperlipidemia Continue home statin? DVT prophylaxis:? Subcu heparin Code status: Full code attending Dr. Raaz continued hospitalization for treatment of UTI pending urine cx Quality Stroke Does the patient have a stroke diagnosis?: No VTE Prior VTE?: No VTE Risk Level:: Medical - moderate - high VTE Device Contraindication: Treatment Not Indicated VTE Drug Contraindication: N/A - Med Ordered
[2021-11-20 18:17] VITALS: PULSE 73; RESP 20
[2021-11-20 20:57] VITALS: BP 116/56; PULSE 83; RESP 15; TEMP 37.6; O2SAT 97
[2021-11-20] MEDS: 0.9 % Sodium Chloride 1,000 ML 50 ML IVCONT (20:59)
[2021-11-21] VITALS (7 sets, daily range): BP systolic 111–132; BP diastolic 42–63; PULSE 57–72; RESP 16–18; TEMP 36.3–37.2; O2SAT 96–100
[2021-11-21 07:18] LABS: Anion Gap 12 (12-20); Blood Urea Nitrogen 9 mg/dL (9-16); Carbon Dioxide 19 mmol/L (22-29); Chloride 108 mmol/L (96-108); Creatinine Clr Calc Pharmacy 61.2; Estimated Glomerular Filt Rate > 60; Glucose Random 102 mg/dL (60-115); Potassium 3.9 mmol/L (3.3-5.1); Sodium 135 mmol/L (135-145)
[2021-11-21] MEDS: Heparin Sodium,Porcine 5,000 UNIT/ML VIAL 5000 UNIT SUBCUT ×2 (08:15→21:43)
--- NOTE | 2021-11-21 08:19 | PC.NURSE ---
pt alert and oriented. IV fluids running, ambulating independently to the bathroom. Pt has a bed on IMC will attempt to call report.
--- NOTE | 2021-11-21 09:06 | HO.PM.IMPN ---
Subjective Subjective Date of Service: 11/21/21 Review of Systems Follow up UTI, bacteremia Doing well ambulating in the room Physical Exam Vital Signs: Vital Signs: Last Vital Signs Temp 98.9 F 11/21/21 05:57 Pulse 71 11/21/21 05:57 Resp 17 11/21/21 05:57 BP 122/52 L 11/21/21 05:57 Pulse Ox 97 11/21/21 05:57 O2 Del Method 11/21/21 05:57 BMI result Body Mass Index 22.6 Appearing in no acute distress lung sounds are clear to auscultation heart regular rate rhythm, clear S1, S2 positive bowel sounds, abdomen is soft, nontender neuro patient is alert x3, no focal deficits Objective Data Active Medications Acetaminophen (Acetaminophen 325 Mg Tablet) 650 mg PO Q6H PRN PRN Reason: Pain, Mild (Pain Scale 1-3) Heparin Sodium (Porcine) (Heparin Sodium,Porcine 5,000 Unit/Ml Vial) 5,000 unit SUBCUT Q12H [facility] Last Admin: 11/21/21 08:15 Dose: 5,000 unit Documented By: CHARLENE Sodium Chloride (Ns) 1,000 mls @ 50 mls/hr IVCONT .Q20H [facility] Last Admin: 11/20/21 20:59 Dose: 50 mls/hr Documented By: HARSHA Ceftriaxone Sodium 1 gm/ (Sodium Chloride) 50 mls @ 100 mls/hr IV Q24H [facility] Last Infusion: 11/21/21 00:01 Dose: 0 mls/hr Documented By: JULIUS Melatonin (Melatonin 3 Mg Tablet) 6 mg PO BEDTIME PRN PRN Reason: Insomnia Senna (Sennosides 8.6 Mg Tablet) 17.2 mg PO BEDTIME PRN PRN Reason: Constipation Sodium Chloride (0.9 % Sodium Chloride Flush 3 Ml Syringe) 3 ml IVFLUSH QSHIFT [facility] Last Admin: 11/21/21 08:16 Dose: Not Given Documented By: CHARLENE Non-Admin Reason: IV Running Labs CBC & Chem 7: 11/20/21 06:07 11/21/21 06:34 Labs: Laboratory Results - last 24 hr 11/21/21 06:34 Anion Gap 12 Estim Creat Clear Calc 61.2 Estimated GFR > 60 Random Glucose 102 Calcium 8.0 L D Microbiology Microbiology Results: Microbiology 11/19/21 18:09 Blood Culture - Preliminary Blood - Venous Gram negative maria luisa 11/19/21 20:26 Urine Culture - Final Urine clean catch - Urine tobin top Escherichia coli 11/19/21 18:09 Blood Culture - Preliminary Blood - Venous No growth after 24 hours. Assessment and Plan (1) UTI (urinary tract infection): Status: Acute Plan 67-year-old female with a past medical history of hyperlipidemia of breast cancer presented to the hospital with the above-noted nausea vomiting/abdominal pain. Noted to have UTI.? Admitted for further management. ? GNR bacteremia Continue Rocephin follow final cultures ID consult Ecoli UTI Continue ceftriaxone Hyponatremia. Resolved Likely low solute state.? Patient received IV fluids.? History of hyperlipidemia Continue home statin? DVT prophylaxis:? Subcu heparin Code status: Full code attending Dr. Raza continued hospitalization for treatment of UTI pending urine cx?requiring IV antibiotics Quality Stroke Does the patient have a stroke diagnosis?: No VTE Prior VTE?: No VTE Risk Level:: Medical - moderate - high VTE Device Contraindication: Treatment Not Indicated VTE Drug Contraindication: N/A - Med Ordered
--- NOTE | 2021-11-21 10:25 | P.CDIC_ITS ---
CDI Concurrent Query Documentation Clarification: PHYSICIAN'S DOCUMENTATION REQUEST Date of Query: 11/21/21 1026 Patient Name: Thuy Patterson Admit Date: 11/19/21 Dear Doctor, A review of the medical record indicates additional documentation may be needed. Please review below and update the documentation accordingly. Clinical Indicators: Risk Factors/Clinical Indicators/Treatments H&P 11/19 - Patient qualified for Sepsis protocol. Temp 101.1 WBC 14.4 RR 24/28 BP 99/43 L IV normal saline bolus, antibiotics, admit requested. Patient with ecoli UTI. PN: 11/20 & 11/21 - GNR Bacteremia Please clarify which, if any, of the following is the most likely etiology of the above symptoms and treatment rendered: * Sepsis due to ecoli Urinary tract infection * Systemic manifestations of infection, with 2 or more SIRS criteria which include: - Fever > 100.4F or hypothermia < 96.8 F - Leukocytosis - WBC > 12,000 or leukopenia, WBC < 4,000 or > 10% bands - Tachycardia > 90 beats/minute - Tachypnea - RR > 20 breaths/minute or PaCO2 < 32mmHg (Source: Merck Manual 2013) * Indicate the known or suspected organism * Indicate the known or suspected underlying infection, such as UTI etc. * Indicate if a suspected bacterial infection of unknown source * Bacteremia (GNR) due to * Other (please specify) * Unable to determine Use of terms such as suspected, likely, concern for, or probable (associated with a specific diagnosis that is being evaluated, monitored, or treated as if it exists) are acceptable and can be coded in the inpatient setting, when documented at the time of discharge. Thank you, Lucero Espino [facility], CDIS Extension: [phone] Please use your independent medical judgment in providing your response. THIS QUERY IS PART OF THE PERMANENT MEDICAL RECORD Other Diagnosis: GNR bacteremia secondary to UTI
--- NOTE | 2021-11-21 13:05 | MHC.CM.PN ---
CM met with Patient at bedside and addressed IMM with her, providing her with the original and placing a copy on the chart. 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 Home is the goal; CM has initiated and will follow for dc planning.PCP is DR. Qian Eid and Patient has received [facility] vaX x2.
--- NOTE | 2021-11-21 15:12 | P.CNID_ITS ---
History of Present Illness Data of Consult Service Date: 11/21/21 Requesting physician: Lucille Gutierrez Primary Care Provider: Unknown Physician HPI Reason for consult: sepsis,fever and leukocytosis to 14,000 She presents with weakness,vomiting and urinary urgency for last two days. She has fever and chills . No one else is ill. Review of Systems Review of Systems: Yes all other systems are reviewed and are negative PMFSH Past Medical History Medical History Anxiety Ductal carcinoma in situ (DCIS) of right breast Dyslipidemia Effusion, right knee Impaired glucose tolerance Insomnia Mild major depression, single episode Sepsis Family History Family History Mother Diabetes Father No problems noted. Brother No problems noted. Brother No problems noted. Brother No problems noted. Sister No problems noted. Family history: reviewed and not pertinent Surgical History Surgical History History of lumpectomy of right breast History of total abdominal hysterectomy Social History Social History Household Members: None Household Members Other:: sister Housing: Apartment Do you presently have visiting nurse or other home services: No Alcohol intake: never Patient Tobacco Use Status: Never used Tobacco e-Cigarette/Vaping Use: Never Used Second Hand Smoke Exposure: No service: No Current occupational status: retired Current occupational exposures/hazards: No Cognitive needs: No Hearing needs: No Vision needs: No Meds Allergies Allergy/AdvReac Type Severity Reaction Status Date / Time aspirin [Aspirin] Allergy Intermediate GI UPSET Verified 11/11/21 14:28 Active Medications: Current Medications Acetaminophen (Acetaminophen 325 Mg Tablet) 650 mg PO Q6H PRN PRN Reason: Pain, Mild (Pain Scale 1-3) Heparin Sodium (Porcine) (Heparin Sodium,Porcine 5,000 Unit/Ml Vial) 5,000 unit SUBCUT Q12H [facility] Last Admin: 11/21/21 08:15 Dose: 5,000 unit Ceftriaxone Sodium 1 gm/ (Sodium Chloride) 50 mls @ 100 mls/hr IV Q24H [facility] Last Infusion: 11/21/21 00:01 Dose: Infused Melatonin (Melatonin 3 Mg Tablet) 6 mg PO BEDTIME PRN PRN Reason: Insomnia Senna (Sennosides 8.6 Mg Tablet) 17.2 mg PO BEDTIME PRN PRN Reason: Constipation Sodium Chloride (0.9 % Sodium Chloride Flush 3 Ml Syringe) 3 ml IVFLUSH QSHIFT [facility] Last Admin: 11/21/21 08:16 Dose: Not Given Home Medications Medication Instructions Recorded Confirmed Last Taken Type celecoxib 100 mg capsule 100 mg PO BID PRN Pain 11/19/21 11/19/21 Unknown History ibuprofen 600 mg tablet 1 tab PO Q6-8H PRN Pain 11/19/21 11/19/21 Unknown History simvastatin 40 mg tablet 1 tab PO BEDTIME 11/19/21 11/19/21 Unknown History Physical Exam Vital Signs: Vital Signs: Last Vital Signs Temp 97.6 F 11/21/21 11:35 Pulse 70 11/21/21 11:35 Resp 18 11/21/21 11:35 BP 128/60 11/21/21 11:35 Pulse Ox 99 11/21/21 11:35 O2 Del Method 11/21/21 11:35 BMI result Body Mass Index 22.6 Const: General: cooperative HEENT: Head: Yes normal to inspection Face and sinus: Yes normal facial exam Mouth: Normal oral and palatal mucosa present Teeth and gingiva: dentition normal Eyes: General: appearance normal, both eyes and all related structures Pupils: Equal, round and reactive pupils present Resp: Effort & Inspection: normal respiratory effort Cardio: Rate: regular rate Rhythm: regular rhythm GI: Palpation (GI): Soft to palpation and nontender : General: Yes no CVA tenderness Back/Spine/Pelvis: Back: no CVA tenderness Skin: General skin exam: no rashes or lesions noted Neuro: General: moves all extremities Cranial nerves: Yes Equal, round and reactive pupils present Extrem: General: Yes normal to inspection Psych: Appearance: grossly normal Results Labs CBC & Chem 7: 11/20/21 06:07 11/21/21 06:34 Labs: BMP 11/21/21 06:34 Sodium 135 Potassium 3.9 Chloride 108 Carbon Dioxide 19 L BUN 9 Creatinine 0.70 Calcium 8.0 L D Microbiology Microbiology Results: Microbiology 11/19/21 18:09 Blood - Venous Blood Culture - Preliminary Gram negative maria luisa 11/19/21 20:26 Urine clean catch - Urine tobin top Urine Culture - Final Escherichia coli 11/19/21 18:09 Blood - Venous Blood Culture - Preliminary No growth after 24 hours. Assessment and Plan (1) UTI (urinary tract infection): Status: Acute (2) Sepsis: Status: Acute This is most likely urine source with frequency and fever. She doesnt complain of gall bladder pain. She has cystitis bladder on CT scan. Plan Would give Ceftriaxone until feeling improved and then po Ceftin for total 10 days
[2021-11-21] MEDS: 0.9 % Sodium Chloride Flush 3 ML SYRINGE IVFLUSH ×2 (15:47→21:43)
[2021-11-21] MEDS: cefTRIAXone sodium 1 GM in 0.9 % Sodium Chloride 50 ML IV (21:43)
[2021-11-22 04:00] VITALS: BP 124/63; PULSE 65; RESP 20; TEMP 36.8; O2SAT 98
[2021-11-22 07:30] VITALS: BP 132/60; PULSE 66; RESP 16; TEMP 36.7; O2SAT 98
--- NOTE | 2021-11-22 08:02 | P.DS_ITS ---
DS: Providers Provider Date of Service: 11/22/21 Date of admission: 11/19/21 20:57 Primary care physician: Unknown Physician Consults: 11/21/21 07:57 Consult to Infectious Diseases Routine Consulting Provider: Natasha Fragoso Reason for consultation: GNR 1/2 Attending physician on discharge: Abdi [facility] Discharging clinician: Lucille Gutierrez DS: Diagnosis Discharge Diagnosis (1) UTI (urinary tract infection): Status: Acute (2) Sepsis: Status: Acute DS: Summary Hospital Course Hospital Course: HP as per admitting provider 67-year-old female with a past medical history of hyperlipidemia of breast cancer presented to the hospital with the above-noted nausea vomiting/abdominal pain. ? Patient reports the past 3 days she has been having nausea/vomiting/abdominal discomfort.? Denies any blood in the vomitus.? Reports abdominal pain is located in the lower quadrant; denies any diarrhea. ? Denies any Cough or sputum production. ? Reports subjective fevers and chills. ? Denies any in the urine.? Reports urinary frequency.? Also reports that she has not been eating drinking for the past 3 days. Review of all other systems is negative except mentioned above ? ER course: Per ER team patient noted mild abdominal discomfort; CT scan consistent with CT status; urinalysis abnormal consistent with UTI.? Patient was given Zosyn.? Patient was also qualified for sepsis protocol; received 30 cc/kg IV fluids. Admitted for further management . Sepsis with GNR bacteremia fever, tachypnea, leukocytosis, normal lactic acid likely urine source treated with IV rocephin seen by ID rec ceftin for total 10 days including Rocephin tx Ecoli UTI Treated with ceftriaxone Ceftin for 6 more days Hyponatremia. Resolved Likely low solute state.? Patient received IV fluids.? History of hyperlipidemia Continue home statin? Time Spent with Patient Time attestation: Total time spent providing and/or coordinating discharge services: Discharge coordination time: Greater than 30 minutes Quality: Safe Use of Opioids Does Pt have an Active Cancer Diagnosis on the Problem List?: No Quality: Stroke Does the patient have a stroke diagnosis?: No Physical Exam Vital Signs: Vital Signs: Last Vital Signs Temp 98.0 F 11/22/21 07:30 Pulse 66 11/22/21 07:30 Resp 16 11/22/21 07:30 BP 132/60 11/22/21 07:30 Pulse Ox 98 11/22/21 07:30 O2 Del Method 11/22/21 07:30 BMI result Body Mass Index 22.6 Appearing in no acute distress head is normocephalic atraumatic eyes pupils are PERRLA sclera is anicteric mouth throat mucous membranes are intact and moist neck is supple no lymphadenopathy, no JVD noted lung sounds are clear to auscultation heart regular rate rhythm, clear S1, S2 positive bowel sounds, abdomen is soft, nontender neuro patient is alert x3, no focal deficits DS: Data Data Completed and Pending Labs on day of discharge: Preliminary micro results at discharge 11/19/21 18:09 Blood Culture - Preliminary Blood - Venous No growth after 48 hours. 11/19/21 18:09 Blood Culture - Preliminary Blood - Venous Gram negative maria luisa Discharge Plan Discharge Anticipated Discharge Date/Time: 11/22/21 07:57 Patient Disposition: Home, Self-Care Discharge Diagnosis: Ecoli UTI Discharge Medications: New cefuroxime axetil 250 mg tablet 250 mg PO BID Qty: 12 0RF Continued simvastatin 40 mg tablet 1 tab PO BEDTIME ibuprofen 600 mg tablet 1 tab PO Q6-8H PRN (Reason: Pain) celecoxib 100 mg capsule 100 mg PO BID PRN (Reason: Pain) Discharge Orders: Discharge Order (Routine); Ordered 11/22/21 Ordered By: Lucille Gutierrez Diet: Advance to usual diet Activity on Discharge: As tolerated Stand Alone Forms: Patient Portal Discharge page Care Plan Goals: Complete resolution of symptoms Health Concerns: Ecoli UTI Plan of Treatment: Take all medications as prescribed Follow up with your PCP as needed You have 6 more days of antibiotics for your UTI Assessment: See discharge summary
[2021-11-22] MEDS: Heparin Sodium,Porcine 5,000 UNIT/ML VIAL 5000 UNIT SUBCUT (09:49)
--- NOTE | 2021-11-22 10:40 | PC.NURSE ---
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 safety and fall precautions in place. call [facility] within reach. pt being discharged. packet given to pt and explained to pt
--- NOTE | 2021-11-22 11:03 | MHC.CM.PN ---
Patient has been medically cleared for dc to home today, self care. IMM addressed yesterday.
== END 2021-11-22 14:38 | disposition home or self-care (01) | DRG 872 ==
LOC: HO.ED 20:35 → HO.EDOVER 21:17 → HO.IMC 11-21 07:32
PROVIDERS: Nurse Practitioner Family; Admitting Provider Hospitalist; Emergency Provider Emergency Medicine; PCP Internal Medicine; Visit Provider Nurse Practitioner Acute Care
DX: A41.9 Sepsis, unspecified organism (principal); N39.0 Urinary tract infection, site not specified; E87.1 Hypo-osmolality and hyponatremia; B96.20 Unspecified Escherichia coli [E. coli] as the cause of diseases classified elsewhere; D72.829 Elevated white blood cell count, unspecified; E78.5 Hyperlipidemia, unspecified; Z20.822 Contact with and (suspected) exposure to COVID-19; Z86.000 Personal history of in-situ neoplasm of breast; Z88.6 Allergy status to analgesic agent; Z79.899 Other long term (current) drug therapy
CPT/HCPCS: 36415; 74176; 80048; 80076; 81001; 83605; 83690; 83735; 85025; 85027; 85610; 87040; 87077; 87086; 87088; 87186; 87205; 87635; 96361; 96374; 96375; 99285; J0696; J2270; J2405; J2543

== ENCOUNTER 2021-12-30 07:28 | Outpatient (REF) | payer MEDICARE, MEDICAID, SELFPAY ==
--- NOTE | ~2021-12-30 | XR_ITS ---
EXAMINATION: XR KNEE AP STANDING X-RAY RIGHT KNEE, 2 VIEWS CLINICAL INFORMATION: Pain in the right knee. COMPARISON: Radiograph of the right knee dated from 11/10/2021. TECHNIQUE: AP bilateral standing view of the knees was obtained. Lateral and sunrise views of the right knee were obtained. FINDINGS: No acute fracture or malalignment. Very mild joint space narrowing of the medial compartment of both knees. No erosions. No chondrocalcinosis. Small joint effusion in the right knee. XR/XR knee standing BI IMPRESSION: No fractures or malalignment. 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 Small right knee joint effusion.
--- NOTE | ~2021-12-30 | XR_ITS ---
EXAMINATION: XR KNEE AP STANDING X-RAY RIGHT KNEE, 2 VIEWS CLINICAL INFORMATION: Pain in the right knee. COMPARISON: Radiograph of the right knee dated from 11/10/2021. TECHNIQUE: AP bilateral standing view of the knees was obtained. Lateral and sunrise views of the right knee were obtained. FINDINGS: No acute fracture or malalignment. Very mild joint space narrowing of the medial compartment of both knees. No erosions. No chondrocalcinosis. Small joint effusion in the right knee. XR/XR knee RT 1V IMPRESSION: No fractures or malalignment. 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 Small right knee joint effusion.
== END 2021-12-30 07:29 | disposition home or self-care (01) ==
LOC: HO.HOSX 07:28
PROVIDERS: Visit Provider Physician Assistant
DX: M17.11 Unilateral primary osteoarthritis, right knee (principal)
CPT/HCPCS: 73560; 73565; 99202

== ENCOUNTER 2022-01-23 10:55 | Outpatient (RCR) | payer MEDICARE, MEDICAID, SELFPAY ==
--- NOTE | 2022-01-23 12:01 | MHC.PT.EP ---
[facility] [place] Office [place] Office [place] Office [address] [phone] F: [phone] F: [phone] F: [phone] F: [phone] Physical Therapy Plan of Care Date of Evaluation: Date of Surgery: Diagnosis: R knee osteoarthritis Assessment: Patient is 66 y.o female, referred to PT by LILLIAN Delgado in orthopedics for R knee osteoarthritis which is confirmed as mild on x-ray. She has minimal impairments upon assessment with low pain, WFL AROM without pain, but does present with weakness in R quadriceps and gluteal muscles. These findings were discussed and she demonstrated ability to perform exercises for HEP. Independent HEP was dispensed for her to work on building up strength to support R knee. She does not want to pursue skilled PT at this time. I am in agreement that she can manage symptoms with HEP, no further skilled PT needed at this time. Patient verbalizes understanding. 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 Manual therapy to restore motion and function. Therapeutic exercise to improve strength and flexibility. Neuromuscular re-education for posture and balance. Therapeutic activities to return to functional activities of daily living. Electronically signed by: Aracelis Rsoado, PT, DPT Please sign and return to therapist. Thank you for your referral.
--- NOTE | 2022-01-23 12:02 | MHC.PT.DC ---
[facility] [place] Office [place] Office [place] Office [address] Svitlana Estrada [address] [phone] F: [phone] F: [phone] F: [phone] F: [phone] Physical Therapy Discharge Report Diagnosis: R knee osteoarthritis Date of Surgery: Date of Evaluation: 01/23/22 Date of Discharge: 01/23/22 Treatments to Date: 1 Cancellations to Date: No Shows to Date: Discharge Status: Independent with HEP Discharge Summary: Patient is 66 y.o female, referred to PT by LILLIAN Delgado in orthopedics for R knee osteoarthritis which is confirmed as mild on x-ray. She has minimal impairments upon assessment with low pain, WFL AROM without pain, but does present with weakness in R quadriceps and gluteal muscles. These findings were discussed and she demonstrated ability to perform exercises for HEP. Independent HEP was dispensed for her to work on building up strength to support R knee. She does not want to pursue skilled PT at this time. I am in agreement that she can manage symptoms with HEP, no further skilled PT needed at this time. Patient verbalizes understanding. Electronically signed by: Aracelis Rosado, PT, DPT Please sign and return to therapist. Thank you for your referral.
== END 2022-01-23 12:03 ==
LOC: HO.PT 10:55
PROVIDERS: Visit Provider Physician Assistant
DX: M17.11 Unilateral primary osteoarthritis, right knee (principal)
CPT/HCPCS: 97110; 97161; 97530

== ENCOUNTER 2022-02-21 10:36 | Outpatient (REF) | payer MEDICARE, MEDICAID, SELFPAY ==
[2022-02-21 12:19] LABS: Alanine Aminotransferase 10 U/L (0-31); Albumin Level 4.3 g/dL (3.5-5.0); Alkaline Phosphatase 48 U/L (39-117); Anion Gap 14 (12-20); Aspartate Amino Transferase 14 U/L (5-31); Bilirubin Total 0.4 mg/dL (0.0-1.0); Blood Urea Nitrogen 12 mg/dL (9-16); Calcium 9.1 mg/dL (8.4-10.2); Carbon Dioxide 27 mmol/L (22-29); Chloride 104 mmol/L (96-108); Cholesterol 148 mg/dL; Estimated Glomerular Filt Rate > 60; Glucose Fasting 103 mg/dL (60-99); HDL Cholesterol 41 mg/dL; LDL Cholesterol Calculated 83 mg/dl; Potassium 4.3 mmol/L (3.3-5.1); Sodium 141 mmol/L (135-145); Total Protein 6.3 g/dL (6.5-8.0); Triglycerides 122 mg/dL
== END 2022-02-21 10:37 | disposition home or self-care (01) ==
LOC: HO.LAB 10:36
PROVIDERS: PCP Internal Medicine; Visit Provider Internal Medicine
DX: E78.5 Hyperlipidemia, unspecified (principal); R73.02 Impaired glucose tolerance (oral)
CPT/HCPCS: 36415; 80053; 80061

== ENCOUNTER 2022-03-09 12:27 | Outpatient (REF) | payer MEDICARE, MEDICAID, SELFPAY ==
--- NOTE | ~2022-03-09 | MM_ITS ---
EXAMINATION: MM SCREENING DIGITAL BREAST TOMOSYNTHESIS, LEFT CLINICAL INFORMATION: Screening. Asymptomatic. Status post right mastectomy. COMPARISON: Mammography: March 17, 2021 and studies dating back to June 09, 2013 TECHNIQUE: Digital breast tomosynthesis is performed in both the craniocaudal and mediolateral oblique views along with computer-aided detection (CAD). Synthesized 2D images are generated from the tomosynthesis. FINDINGS: There are scattered areas of fibroglandular density (ACR BI-RADS breast composition Category b). There are no significant masses, abnormal calcifications, or other abnormalities. MM/MM tomosynthesis screening LT IMPRESSION: No significant changes from prior exam. ASSESSMENT: BI-RADS 1: Negative RECOMMENDATION: Routine annual mammography screening. This patient's information was entered into a reminder system with a target due date for their next mammogram.
== END 2022-03-09 12:28 | disposition home or self-care (01) ==
LOC: HO.MAMMO 12:27
PROVIDERS: PCP Internal Medicine; Visit Provider Internal Medicine
DX: Z12.31 Encounter for screening mammogram for malignant neoplasm of breast (principal)
CPT/HCPCS: 77063; 77067

== ENCOUNTER → 2022-04-20 10:58 | Outpatient (BNVA) | payer MEDICARE, MEDICAID, SELFPAY | PROVIDERS: PCP Internal Medicine; Visit Provider Surgery | DX: D05.11 Intraductal carcinoma in situ of right breast (principal) | CPT/HCPCS: 99212 ==

== ENCOUNTER 2022-08-22 10:32 | Outpatient (REF) | payer MEDICARE, MEDICAID, SELFPAY ==
[2022-08-22 12:24] LABS: Alanine Aminotransferase 12 U/L (0-31); Alkaline Phosphatase 47 U/L (39-117); Anion Gap 11 (12-20); Aspartate Amino Transferase 15 U/L (5-31); Bilirubin Total 0.3 mg/dL (0.0-1.0); Blood Urea Nitrogen 9 mg/dL (9-16); Calcium 9.1 mg/dL (8.4-10.2); Carbon Dioxide 25 mmol/L (22-29); Chloride 110 mmol/L (96-108); Cholesterol 157 mg/dL; Estimated Glomerular Filt Rate > 60; Glucose Fasting 101 mg/dL (60-99); HDL Cholesterol 45 mg/dL; LDL Cholesterol Calculated 98 mg/dl; Potassium 5.2 mmol/L (3.3-5.1); Sodium 141 mmol/L (135-145); Total Protein 5.8 g/dL (6.5-8.0); Triglycerides 70 mg/dL
== END 2022-08-22 10:33 | disposition home or self-care (01) ==
LOC: HO.LAB 10:32
PROVIDERS: PCP Internal Medicine; Visit Provider Internal Medicine
DX: M17.11 Unilateral primary osteoarthritis, right knee (principal); E78.5 Hyperlipidemia, unspecified
CPT/HCPCS: 36415; 80053; 80061

== ENCOUNTER 2022-08-28 11:10 | Outpatient (REF) | payer MEDICARE, MEDICAID, SELFPAY ==
[2022-08-28 12:06] LABS: Potassium 5.7 mmol/L (3.3-5.1)
== END 2022-08-28 11:11 | disposition home or self-care (01) ==
LOC: HO.LAB 11:10
PROVIDERS: PCP Internal Medicine; Visit Provider Internal Medicine
DX: E87.5 Hyperkalemia (principal); E55.9 Vitamin D deficiency, unspecified
CPT/HCPCS: 36415; 82306; 84132

== ENCOUNTER 2022-09-29 10:30 | Outpatient (REF) | payer MEDICARE, MEDICAID, SELFPAY ==
[2022-09-29 11:19] LABS: Potassium 5.4 mmol/L (3.3-5.1)
== END 2022-09-29 10:31 | disposition home or self-care (01) ==
LOC: HO.LAB 10:30
PROVIDERS: PCP Internal Medicine; Visit Provider Internal Medicine
DX: E87.5 Hyperkalemia (principal)
CPT/HCPCS: 36415; 84132

== ENCOUNTER 2023-01-18 15:17 | Outpatient (REF) | payer MEDICARE, MEDICAID, SELFPAY ==
[2023-01-18 16:41] LABS: Anion Gap 12 (12-20); Blood Urea Nitrogen 11 mg/dL (9-16); Calcium 9.5 mg/dL (8.4-10.2); Carbon Dioxide 27 mmol/L (22-29); Chloride 108 mmol/L (96-108); Estimated Glomerular Filt Rate > 60; Potassium 4.7 mmol/L (3.3-5.1); Sodium 142 mmol/L (135-145)
== END 2023-01-18 15:18 | disposition home or self-care (01) ==
LOC: HO.LAB 15:17
PROVIDERS: PCP Internal Medicine; Visit Provider Internal Medicine Hypertension Specialist
DX: E87.5 Hyperkalemia (principal)
CPT/HCPCS: 36415; 80051; 82310; 82565; 84520

== ENCOUNTER 2023-02-21 10:57 | Outpatient (AMB) | payer MEDICARE, MEDICAID, SELFPAY ==
--- NOTE | 2023-02-21 10:59 | MHC.PC.OV ---
Vital Signs 02/21/23 11:00 Height 5 ft 1 in Weight 110 lb BMI 20.8 BP 126/72 Blood Pressure Location Lt brachial Position Sitting Pulse 73 Pulse Source Pulse Oximeter Pulse Oximetry (%) 97 Oxygen Delivery Method Room Air Intake Visit Reasons: physical exam Intake Note: Patient here for a physical exam Fountain Attendant Required: No Accompanied by: Sister Allergies aspirin [Aspirin] Allergy (Intermediate, Verified 02/21/23 11:26) GI UPSET Medication List - Last Reconciled 02/21/23 by Qian Armenta MD cholecalciferol (vitamin D3) 50 mcg PO DAILY 90 days simvastatin 40 mg PO BEDTIME Tobacco use date assessed: 08/28/22 Fall risk assessment: No Falls in past year Last assessed Fall Risk: 02/21/23 Dental Screening Dental Screen Date: 02/21/23 Did you have a dental visit in the last 12 months?: No Did you have a dental problem in the last 6 months where you did not have access to dental care?: No Was dental information given to patient?: Patient has dentist HPI HPI Comments History of Present Illness Details This is a 67-year-old female that comes accompanied by sister which is the oil well fishing tool operator for her physical exam. She has history of breast cancer in the past and mammogram is scheduled for next month. Last colonoscopy was 2018 showing fragments of tubular adenoma and next colonoscopy should be 2023. Denies any chest pain or shortness of breath. Complains of occasional joint pain and I will add acetaminophen. [facility] Medical History (Updated 02/21/23 @ 11:35 by Qian Armenta MD) High cholesterol Sepsis Effusion, right knee Mild major depression, single episode Impaired glucose tolerance Insomnia Anxiety Dyslipidemia Ductal carcinoma in situ (DCIS) of right breast Surgical History History of lumpectomy of right breast History of total abdominal hysterectomy Family History Mother Diabetes Father No problems noted. Brother No problems noted. Brother No problems noted. Brother No problems noted. Sister No problems noted. Social History Household Members: None Household Members Other:: sister Housing: Apartment Do you presently have visiting nurse or other home services: No Alcohol intake: never Patient Tobacco Use Status: Never used Tobacco e-Cigarette/Vaping Use: Never Used Second Hand Smoke Exposure: No service: No Current occupational status: retired Current occupational exposures/hazards: No Cognitive needs: No Hearing needs: No Vision needs: Yes Questionnaire Thrive Questionnaire Date Thrive assessed: 09/22/21 SOLOMON-7 AMB Questionnaire SOLOMON-7 Date SOLOMON - 7 assessed: 09/22/21 Source: Developed by Drs. Jose Arriaga, Concepción Irizarry, Alexis Bynum and colleagues, with an educational arvind from [employer]. Review of Systems Const All systems reviewed & are unremarkable except as noted in HPI and below Eyes Reports no additional complaints, Denies change in vision and Denies other visual disturbances Card Denies chest pain at rest, Denies chest pain with activity, Denies edema, Denies irregular heart rhythm, Denies claudication, Denies dyspnea, Denies dyspnea on exertion, Denies orthopnea, Denies paroxysmal nocturnal dyspnea and Denies slow heart rate Resp Denies cough, Denies dyspnea and Denies dyspnea on exertion GI Denies abdominal pain, Denies change in bowel habits, Denies excessive flatus, Denies nausea and Denies vomiting Denies urinary incontinence, Denies urinary hesitancy and Denies urinary urgency Musc Denies abnormal gait, Denies atrophy, Denies deformity and Denies limited range of motion Skin/Breast Denies bleeding lesions, Denies changing lesions and Denies rash Neuro Denies abnormal gait and Denies lack of coordination Physical exam (Primary Care) Vital Signs: Last Vital Signs Pulse 73 02/21/23 11:00 BP 126/72 02/21/23 11:00 Pulse Ox 97 02/21/23 11:00 Oxygen Delivery Method Room Air 02/21/23 11:00 BMI result Body Mass Index 20.8 Tobacco/Smoking Status: Tobacco use Status Tobacco use date assessed 08/28/22 02/21/23 11:03 Patient Tobacco Use Status Never used Tobacco 02/21/23 11:03 e-Cigarette/Vaping Use Never Used 02/21/23 11:03 Thrive Assessment: Date of Thrive Assessment Date Thrive assessed 09/22/21 02/21/23 11:03 Const Orientation/consciousness: patient oriented x3 HENMT Head: Yes normal to inspection, Yes normocephalic and Yes atraumatic Ears: external ears normal Eyes General: appearance normal, both eyes and all related structures Eyelids: Yes eyelids normal Conjunctivae: conjunctivae normal Neck Neck: Yes normal visual inspection and Yes supple Resp Effort & Inspection: normal respiratory effort Auscultation: clear to auscultation bilaterally Cardio Jugular venous distension: no JVD Rate: regular rate Rhythm: regular rhythm Heart sounds: S1 normal heart sound present and S2 normal heart sound present GI Inspection: Yes normal to inspection Palpation (GI): Soft to palpation and nontender Auscultation: normal bowel sounds Skin General skin exam: no rashes or lesions noted Neuro General: patient oriented x3 and no focal motor deficits Extrem General: Yes full ROM Psych Appearance: grossly normal Office Procedures Flu Questionnaire Does the patient have a severe egg allergy?: No Immunizations flu vacc [id number] 6mos up(PF) 60 mcg(15 mcgx4)/0.5 mL IM syringe Performing Provider: Qian Armenta MD [facility] Documented (not given) by: KEV Mulligan on 02/21/23 11:04 Reason Not Given: Patient Refused Assessment and Plan Assessment & Plan (1) Physical exam: Code(s): Z00.00 - Encounter for general adult medical examination without abnormal findings Plan: Repeat in a year Orders: Orders Lipid Panel Today E78.5 - Hyperlipidemia, unspecified Complete Blood Count Auto Diff Today D64.9 - Anemia, unspecified Influenza [id number] Immunization Today Z23 - Encounter for immunization Vitamin D 25-OH Total Today E55.9 - Vitamin D deficiency, unspecified IRON PROFILE Today D64.9 - Anemia, unspecified Comprehensive [place]. Panel Fast Today Z00.00 - Encounter for general adult medical examination without abnormal findings Coding Level of Care Code Est Pt Prev Care >65y(64169) Diagnoses Physical exam Z00.00 Time Spent (min) 31
[2023-02-21 11:00] VITALS: BP 126/72; PULSE 73; O2SAT 97; BMI 20.8
== END 2023-02-21 11:38 | disposition home or self-care (01) ==
PROVIDERS: Visit Provider Internal Medicine
DX: Z00.00 Encounter for general adult medical examination without abnormal findings (principal)
CPT/HCPCS: 99397

== ENCOUNTER 2023-02-26 10:40 | Outpatient (REF) | payer MEDICARE, MEDICAID, SELFPAY ==
[2023-02-26 11:13] LABS: MANUAL DIFF FLAG NO
[2023-02-26 11:49] LABS: Basophils Absolute Auto 0.1 X10*3/uL (0.0-0.2); Basophils Percent Auto 0.6 % (0-2); Eosinophils Absolute Auto 0.1 X10*3/uL (0.0-0.4); Eosinophils Percent Auto 1.1 % (0-4); Hematocrit 36.2 % (37.0-47.0); Imm Gran Abs Auto 0.03 X10*3/uL (0.00-0.03); Imm Gran Pct Auto 0.3 % (0.0-0.4); Lymphocytes Absolute Auto 2.6 X10*3/uL (1.2-4.9); Lymphocytes Percent Auto 28.8 % (20-40); Mean Corpuscular HGB Conc 33.1 g/dl (31.0-35.0); Mean Corpuscular Hemoglobin 30.1 pg (27.0-33.0); Mean Corpuscular Volume 90.7 fL (80.0-98.0); Mean Platelet Volume 9.4 fL (9.4-12.3); Monocytes Absolute Auto 0.7 X10*3/uL (0.1-1.2); Monocytes Percent Auto 7.8 % (2-11); Neutrophils Absolute Auto 5.6 x10*3/uL (2.0-8.3); Neutrophils Percent Auto 61.4 % (45-73); Platelet Count 359 X10*3/uL (160-400); Red Blood Count 3.99 X10*6/uL (4.20-5.50); Red Cell Distribution Width 14.1 % (11.0-16.0); White Blood Count 9.1 X10*3/uL (4.8-10.8)
[2023-02-26 12:46] LABS: Alanine Aminotransferase 15 U/L (0-31); Albumin Level 4.1 g/dL (3.5-5.0); Alkaline Phosphatase 46 U/L (39-117); Anion Gap 12 (12-20); Aspartate Amino Transferase 14 U/L (5-31); Bilirubin Total 0.3 mg/dL (0.0-1.0); Blood Urea Nitrogen 7 mg/dL (9-16); Calcium 9.2 mg/dL (8.4-10.2); Carbon Dioxide 27 mmol/L (22-29); Chloride 109 mmol/L (96-108); Cholesterol 139 mg/dL (<200); Estimated Glomerular Filt Rate > 60; Glucose Fasting 107 mg/dL (60-99); HDL Cholesterol 45 mg/dL (>40); Iron 64 mcg/dL (30-160); LDL Cholesterol Calculated 81 mg/dL (<100); Percent Iron Saturation 21 % (15-50); Potassium 5.7 mmol/L (3.3-5.1); Sodium 142 mmol/L (135-145); Total Iron Binding Capacity 301 mcg/dL (228-428); Total Protein 6.3 g/dL (6.5-8.0); Triglycerides 66 mg/dL (<150); Unsaturated Iron Binding 237 ug/dL
[2023-02-26 13:07] LABS: Vitamin D 25-OH Total 24.7 ng/mL (>30)
== END 2023-02-26 10:41 | disposition home or self-care (01) ==
LOC: HO.LAB 10:40
PROVIDERS: PCP Internal Medicine; Visit Provider Internal Medicine
DX: Z00.00 Encounter for general adult medical examination without abnormal findings (principal); D64.9 Anemia, unspecified; E78.5 Hyperlipidemia, unspecified; E55.9 Vitamin D deficiency, unspecified
CPT/HCPCS: 36415; 80053; 80061; 82306; 83540; 85025

== ENCOUNTER 2023-03-09 10:15 | Outpatient (REF) | payer MEDICARE, MEDICAID, SELFPAY ==
[2023-03-09 11:25] LABS: Potassium 4.6 mmol/L (3.3-5.1)
== END 2023-03-09 10:16 | disposition home or self-care (01) ==
LOC: HO.LAB 10:15
PROVIDERS: PCP Internal Medicine; Visit Provider Internal Medicine
DX: E87.5 Hyperkalemia (principal)
CPT/HCPCS: 36415; 84132

== ENCOUNTER 2023-03-15 12:19 | Outpatient (REF) | payer MEDICARE, MEDICAID, SELFPAY ==
--- NOTE | ~2023-03-15 | MM_ITS ---
EXAMINATION: MM SCREENING DIGITAL BREAST TOMOSYNTHESIS, LEFT CLINICAL INFORMATION: Screening. Asymptomatic. COMPARISON: Mammography: This study is compared with prior exams dating back to 2019. TECHNIQUE: Digital breast tomosynthesis is performed in both the craniocaudal and mediolateral oblique views along with computer-aided detection (CAD). Synthesized 2D images are generated from the tomosynthesis. FINDINGS: There are scattered areas of fibroglandular density (ACR BI-RADS breast composition Category b). There are no significant masses, abnormal calcifications, or other abnormalities. Few, benign calcifications are present in the left breast. MM/MM tomosynthesis screening LT IMPRESSION: No mammographic evidence of malignancy. ASSESSMENT: BI-RADS BI-RADS 2 - Benign Findings RECOMMENDATION: Routine annual mammography screening. 1 year F/U This examination should not preclude the clinical evaluation of a suspicious palpable abnormality. This patient's information was entered into a reminder system with a target due date for their next mammogram.
== END 2023-03-15 12:20 | disposition home or self-care (01) ==
LOC: HO.MAMMO 12:19
PROVIDERS: PCP Surgery; Visit Provider Internal Medicine
DX: Z12.31 Encounter for screening mammogram for malignant neoplasm of breast (principal)
CPT/HCPCS: 77063; 77067

== ENCOUNTER → 2023-03-15 12:30 | Outpatient (BNV) | payer MEDICARE, MEDICAID, SELFPAY | PROVIDERS: PCP Surgery; Visit Provider Radiology Diagnostic Radiology | DX: Z12.31 Encounter for screening mammogram for malignant neoplasm of breast (principal) | CPT/HCPCS: 77063; 77067 ==

== ENCOUNTER 2023-08-17 10:25 | Outpatient (REF) | payer MEDICARE, MEDICAID, SELFPAY ==
[2023-08-17 10:49] LABS: MANUAL DIFF FLAG NO
[2023-08-17 11:37] LABS: Basophils Absolute Auto 0.1 X10*3/uL (0.0-0.2); Basophils Percent Auto 0.6 % (0-2); Eosinophils Absolute Auto 0.1 X10*3/uL (0.0-0.4); Eosinophils Percent Auto 0.8 % (0-4); Hematocrit 35.4 % (37.0-47.0); Hemoglobin 11.8 g/dl (12.0-16.0); Imm Gran Abs Auto 0.03 X10*3/uL (0.00-0.03); Imm Gran Pct Auto 0.3 % (0.0-0.4); Lymphocytes Absolute Auto 2.9 X10*3/uL (1.2-4.9); Mean Corpuscular HGB Conc 33.3 g/dl (31.0-35.0); Mean Corpuscular Hemoglobin 29.8 pg (27.0-33.0); Mean Corpuscular Volume 89.4 fL (80.0-98.0); Mean Platelet Volume 9.2 fL (9.4-12.3); Monocytes Absolute Auto 0.7 X10*3/uL (0.1-1.2); Monocytes Percent Auto 7.5 % (2-11); Neutrophils Absolute Auto 5.3 x10*3/uL (2.0-8.3); Neutrophils Percent Auto 58.8 % (45-73); Platelet Count 351 X10*3/uL (160-400); Red Blood Count 3.96 X10*6/uL (4.20-5.50)
[2023-08-17 13:00] LABS: Anion Gap 11 (12-20); Blood Urea Nitrogen 11 mg/dL (9-16); Calcium 8.9 mg/dL (8.4-10.2); Carbon Dioxide 24 mmol/L (22-29); Chloride 108 mmol/L (96-108); Estimated Glomerular Filt Rate > 60; Potassium 4.4 mmol/L (3.3-5.1); Sodium 139 mmol/L (135-145); Uric Acid 4.7 mg/dL (2.4-5.7)
[2023-08-17 13:10] LABS: Vitamin D 25-OH Total 39.4 ng/mL (>30)
[2023-08-17 13:43] LABS: Appearance Urine Cloudy; Color Urine Yellow; Glucose Urine UA Negative (Negative); Leukocyte Esterase Urine Large (3+) (Negative); Nitrite Urine Negative (Negative); PH 6.5 (5.0-9.0); UMIC TRIGGER UA YES; Urine Blood Small (1+) (Negative); Urine Ketones Negative (Negative); Urine Protein Negative (Neg-Trace)
[2023-08-17 14:26] LABS: Osmolality Urine 250 mosm/kg (373-1093)
[2023-08-17 14:29] LABS: Creatinine Urine 44.74 mg/dL
[2023-08-17 14:52] LABS: Bacteria Urine 2+ (None Seen); Hyaline Casts Urine 0-2 /LPF (0-2); RBC Urine 0-2 /HPF (0-2)
== END 2023-08-17 10:26 | disposition home or self-care (01) ==
LOC: HO.LAB 10:25
PROVIDERS: Visit Provider Internal Medicine
DX: E87.5 Hyperkalemia (principal)
CPT/HCPCS: 36415; 80051; 81001; 81003; 82306; 82310; 82565; 82570; 83935; 84133; 84300; 84520; 84550; 85025

== ENCOUNTER 2024-02-25 11:03 | Outpatient (AMB) | payer MEDICARE, MEDICAID, SELFPAY ==
--- NOTE | 2024-02-25 11:05 | A.OFFPC_ITS ---
Vital Signs 02/25/24 11:07 Height 5 ft 1 in Weight 104 lb BMI 19.6 BP 110/64 Blood Pressure Location Lt brachial Position Sitting Intake Visit Reasons: PE Intake Note: Patient here for a physical exam Transformation Architect Required: No Accompanied by: Sister Allergies aspirin [Aspirin] Allergy (Intermediate, Verified 02/25/24 11:15) GI UPSET Medication List - Last Reconciled 02/25/24 by Qian Armenta MD acetaminophen ER 1,300 mg (2 x 650 mg) PO Q8H PRN 30 days cholecalciferol (vitamin D3) 50 mcg PO DAILY 90 days simvastatin 40 mg PO BEDTIME sodium polystyrene sulfonate 15 grams PO DAILY Tobacco use date assessed: 02/25/24 Fall risk assessment: No Falls in past year Last assessed Fall Risk: 02/25/24 Dental Screening Dental Screen Date: 02/25/24 Did you have a dental visit in the last 12 months?: No Did you have a dental problem in the last 6 months where you did not have access to dental care?: No Was dental information given to patient?: Patient has dentist HPI HPI Comments History of Present Illness Details This is a 68-year-old female that comes accompanied by sister for her physical exam. Denies any chest pain or shortness on breath. Will have mammogram this year. I will order a DEXA scan. Colonoscopy done 2019 showing tubular adenoma will be refer to building materials sales attendant Dr. Kyle for evaluation. [facility] Medical History (Updated 02/25/24 @ 11:58 by Qian Armenta MD) High cholesterol Sepsis Effusion, right knee Mild major depression, single episode Impaired glucose tolerance Insomnia Anxiety Dyslipidemia Ductal carcinoma in situ (DCIS) of right breast Surgical History History of lumpectomy of right breast History of total abdominal hysterectomy Family History Mother Diabetes Father No problems noted. Brother No problems noted. Brother No problems noted. Brother No problems noted. Sister No problems noted. Social History Household Members: None Household Members Other:: sister Housing: Apartment Do you presently have visiting nurse or other home services: No Alcohol intake: never Patient Tobacco Use Status: Never used Tobacco e-Cigarette/Vaping Use: Never Used Second Hand Smoke Exposure: No service: No Current occupational status: retired Current occupational exposures/hazards: No Cognitive needs: No Hearing needs: No Vision needs: Yes Questionnaire PHQ-9 Over the last 2 weeks, how often have you been bothered by any of the following problems? 1. Little interest or pleasure in doing things: not at all 2. Feeling down, depressed, or hopeless: not at all 3. Trouble falling or staying asleep, or sleeping too much: not at all 4. Feeling tired or having little energy: not at all 5. Poor appetite or overeating: not at all 6. Feeling bad about yourself - or that you are a failure or have let yourself or your family down: not at all 7. Trouble concentrating on things, such as reading the newspaper or watching television: not at all 8. Moving or speaking so slowly that other people could have noticed. Or the opposite - being so fidgety or restless that you have been moving around a lot more than usual: not at all 9. Thoughts that you would be better off or of hurting yourself in some way: not at all Total score: 0 Depression Screening Interpretation: Negative Depression Screening Done: Yes 07277 - PHQ-9 Billing: Yes Source: Developed by Drs. Jose Arriaga, Concepción Irizarry, Alexis Bynum and colleagues, with an educational arvind from [employer]. Thrive Questionnaire Date Thrive assessed: 02/25/24 I am a: Patient What is your living situation today?: I have a steady place to live Within the past 12 months, did the food you bought not last and you didn't have the money to get more?: Never true Within the past 12 months, did you worry whether your food would run out before you got money to buy more?: Never true Do you have trouble paying for medicines?: No Do you have trouble getting transportation to medical appointments?: No Do you have trouble paying your heating and electricity bill?: No Do you have trouble taking care of your child, family member or friend?: No Do you have trouble with day-to-day activities such as bathing, preparing meals, shopping, managing finances, etc.?: No Are you currently unemployed and looking for a job?: No Are you interested in more education?: No Please select the resources that you would like help with: None Currently or been in a relationship where the following occur: No concerns reported THRIVE Score: 0 AUDIT C Alcohol Use Questionnaire (AUDIT-C) 1. How often do you have a drink containing alcohol?: Never Total Score: 0 Score Reviewed/Action Taken: No SOLOMON-7 AMB Questionnaire SOLOMON-7 Date SOLOMON - 7 assessed: 02/25/24 Feeling nervous, anxious, or on edge: 0 = Not at all Not being able to stop or control worryin = Not at all Worrying too much about different things: 0 = Not at all Trouble relaxin = Not at all Being so restless that it is hard to sit still: 0 = Not at all Becoming easily annoyed or irritable: 0 = Not at all Feeling afraid as if something awful might happen: 0 = Not at all Total SOLOMON-7 score (0-4 normal; 5-9 mild; 10-14 moderate; 15-21 severe): 0 Source: Developed by Drs. Jose Arriaga, Concepción Irizarry, Alexis Bynum and colleagues, with an educational arvind from [employer]. SOLOMON-7 Assessment Billing SOLOMON-7 Assessment Tool: SOLOMON-7 Assessment 20028 Review of Systems Const All systems reviewed & are unremarkable except as noted in HPI and below Card Denies chest pain at rest, Denies chest pain with activity, Denies edema, Denies irregular heart rhythm, Denies claudication, Denies dyspnea, Denies dyspnea on exertion, Denies orthopnea, Denies paroxysmal nocturnal dyspnea and Denies slow heart rate Resp Denies cough, Denies dyspnea and Denies dyspnea on exertion GI Denies abdominal pain, Denies change in bowel habits, Denies excessive flatus, Denies nausea and Denies vomiting Neuro Denies lack of coordination Physical exam (Primary Care) Vital Signs: Last Vital Signs BP 110/64 02/25/24 11:07 BMI result Body Mass Index 19.6 BMI Assessment/Plan discussion: Low BMI Low, Plan discussed: lifestyle, increase calorie intake and dietary Tobacco/Smoking Status: Tobacco use Status Tobacco use date assessed 02/25/24 02/25/24 11:12 Patient Tobacco Use Status Never used Tobacco 02/25/24 11:05 e-Cigarette/Vaping Use Never Used 02/25/24 11:05 PHQ-9: PHQ-9 Score PHQ-9: Total score 0 02/25/24 11:16 Depression Screening Interpretation: Negative Thrive Assessment: Date of Thrive Assessment Date Thrive assessed 02/25/24 02/25/24 11:05 Currently or been in a relationship where the following occur: No concerns reported [facility] Head: Yes normal to inspection, Yes normocephalic and Yes atraumatic Ears: external ears normal Eyes General: appearance normal, both eyes and all related structures Eyelids: Yes eyelids normal Conjunctivae: conjunctivae normal Neck Neck: Yes normal visual inspection and Yes supple Resp Effort & Inspection: normal respiratory effort Auscultation: clear to auscultation bilaterally Cardio Jugular venous distension: no JVD Rate: regular rate Rhythm: regular rhythm Heart sounds: S1 normal heart sound present and S2 normal heart sound present GI Inspection: Yes normal to inspection Palpation (GI): Soft to palpation and nontender Auscultation: normal bowel sounds Skin General skin exam: no rashes or lesions noted Neuro General: no focal motor deficits Extrem General: Yes full ROM Psych Appearance: grossly normal Office Procedures Flu Questionnaire Does the patient have a severe egg allergy?: No Does the patient have severe life threatening allergies?: No Does the patient have a fever or illness today?: No Has the patient ever had Guillain-[place] Syndrome?: No Has the patient ever had any past reaction to a flu shot?: No Immunizations Fluarix Triv [id number] (PF) 45 mcg (15 mcg x 3)/0.5 mL IM syringe Performing Provider: Qian Armenta MD [facility] Administered by: KEV Mulligan on 02/25/24 11:25 Dose Route Admin Location Dispensed Lot Number Expiration Date [facility] [employer] 0.5 mL IM Left Deltoid 0.5 mL [id number] 11/10/24 [id number] [employer] VIS Given Date VIS Provided VIS Publication Date 02/25/24 Single Vaccine 20 Eligibility Eligibility Date Funding Source Not [facility] Eligible 02/25/24 Private Coding Level of Care Code Est Pt Prev Care >65y(63189) Diagnoses Physical exam Z00.00 Additional Codes SOLOMON-7 Assessment Billing - SOLOMON-7 Assessment Tool: SOLOMON-7 Assessment 30573 ([id number]) Time Spent (min) 30 Assessment & Plan Assessment & Plan (1) Physical exam: Code(s): Z00.00 - Encounter for general adult medical examination without abnormal findings Category: Medical Plan: Repeat in a year. Orders: Orders Influenza [id number] Immunization Today Z23 - Encounter for immunization XR DEXA axial skeleton Today Z78.0 - Asymptomatic menopausal state Referrals Gastroenterology Referral D12.6 - Benign neoplasm of colon, unspecified
[2024-02-25 11:07] VITALS: BP 110/64; BMI 19.6
== END 2024-02-25 11:30 | disposition home or self-care (01) ==
PROVIDERS: PCP Internal Medicine; Visit Provider Internal Medicine
DX: Z00.00 Encounter for general adult medical examination without abnormal findings (principal)

== ENCOUNTER → 2024-02-25 11:03 | Outpatient (BNVA) | payer OTHER, SELFPAY | PROVIDERS: PCP Internal Medicine; Visit Provider Internal Medicine | DX: Z00.01 Encounter for general adult medical examination with abnormal findings (principal); Z23 Encounter for immunization; Z78.0 Asymptomatic menopausal state; D12.6 Benign neoplasm of colon, unspecified | CPT/HCPCS: 90471; 90656; 96127; 99397 ==

== ENCOUNTER 2024-02-27 10:41 | Outpatient (REF) | payer OTHER, SELFPAY ==
[2024-02-27 12:48] LABS: Alanine Aminotransferase 14 U/L (0-31); Albumin Level 3.8 g/dL (3.5-5.0); Alkaline Phosphatase 45 U/L (39-117); Anion Gap 11 (12-20); Aspartate Amino Transferase 13 U/L (5-31); Bilirubin Total 0.2 mg/dL (0.0-1.0); Blood Urea Nitrogen 12 mg/dL (9-16); Calcium 9.1 mg/dL (8.4-10.2); Carbon Dioxide 25 mmol/L (22-29); Chloride 108 mmol/L (96-108); Cholesterol 149 mg/dL (<200); Estimated Glomerular Filt Rate > 60; Glucose Fasting 105 mg/dL (60-99); HDL Cholesterol 43 mg/dL (>40); LDL Cholesterol Calculated 89 mg/dL (<100); Sodium 140 mmol/L (135-145); Total Protein 5.8 g/dL (6.5-8.0); Triglycerides 85 mg/dL (<150)
[2024-02-27 13:04] LABS: Vitamin D 25-OH Total 51.2 ng/mL (>30)
== END 2024-02-27 10:42 | disposition home or self-care (01) ==
LOC: HO.LAB 10:41
PROVIDERS: PCP Internal Medicine; Visit Provider Internal Medicine
DX: E87.5 Hyperkalemia (principal); E55.9 Vitamin D deficiency, unspecified; E78.5 Hyperlipidemia, unspecified
CPT/HCPCS: 36415; 80053; 80061; 82306

== ENCOUNTER 2024-04-16 13:37 | Outpatient (REF) | payer OTHER, SELFPAY ==
--- NOTE | ~2024-04-16 | MM_ITS ---
EXAMINATION: MM SCREENING DIGITAL BREAST TOMOSYNTHESIS, BILATERAL CLINICAL INFORMATION: Screening. Asymptomatic. Right mastectomy. COMPARISON: Mammography: This study is compared with prior exams dating back to TECHNIQUE: Digital breast tomosynthesis is performed in both the craniocaudal and mediolateral oblique views along with computer-aided detection (CAD). Synthesized 2D images are generated from the tomosynthesis. FINDINGS: The breasts are heterogeneously dense, which may obscure small masses (ACR BI-RADS breast composition Category c). There are no significant masses, abnormal calcifications, or other abnormalities. MM/MM tomosynthesis screening LT IMPRESSION: No mammographic evidence of malignancy. ASSESSMENT: BI-RADS BI-RADS 1 - Negative RECOMMENDATION: Routine annual mammography screening. 1 year F/U This examination should not preclude the clinical evaluation of a suspicious palpable abnormality. This patient's information was entered into a reminder system with a target due date for their next mammogram. Electronically signed by: Noy Martinez DO 04/22/2024 05:44 PM CHEN
--- NOTE | ~2024-04-16 | MM_ITS ---
EXAMINATION: BONE DENSITOMETRY CLINICAL INDICATION: Menopause. COMPARISON: This is the patient's baseline examination. TECHNIQUE: Using a [employer] DXA System (software version: 13.1) manufactured by [employer], dual-energy x-ray absorptiometry was performed of the lumbar spine and left hip. The images are of good technical quality. Summary results are attached. FINDINGS: LEFT FEMUR, NECK: BMD 0.812 g/cm2, Z-score 0.3, T-score -1.6, osteopenia. LEFT FEMUR, TOTAL: BMD 0.807 g/cm2, Z-score 0.1, T-score -1.6, osteopenia. AP SPINE L1-L4: BMD 1.014 g/cm2, Z-score 0.9, T-score -1.4, osteopenia. IDENTIFIED RISK FACTORS: Menopause. HISTORY OF FRACTURE: None listed. MEDICATIONS: Vitamin D. MM/XR DEXA axial skeleton IMPRESSION: 1. DIAGNOSIS: Osteopenia based on the lowest T-score value of -1.6 in the femur neck and total femur applying World Health Organization criteria. 2. 10-YEAR FRACTURE RISK PREDICTION, FRAX: Major osteoporotic fracture (clinical spine, forearm, hip or shoulder) 4.6%. Hip fracture 0.7%. 3. Treatment Recommendations: NOF guidelines recommend consideration for treatment in postmenopausal women and men age 50 and older presenting with the following: -A hip or vertebral (clinical or morphometric) fracture. -T-score less than or equal to -2.5 at the femoral neck or spine after appropriate evaluation to exclude secondary causes. -Low bone mass at the hip or spine and a 10-year fracture probability by FRAX of greater than or equal to 3% for hip fracture or greater than or equal to 20% for major osteoporotic fracture based on the [place] adapted WHO algorithm. 4. Other Recommendations: All treatment decisions require clinical judgment and consideration of individual patient factors, including patient preferences, comorbidities, previous drug use, risk factors not captured in the FRAX model (e.g. frailty, falls, vitamin D deficiency, increased bone turnover, interval significant decline in bone density) and possible under or overestimation of fracture risk by FRAX. Additional medical evaluation for secondary cause of low bone mineral density may be appropriate. FUTURE SCAN RECOMMENDATION: People with diagnosed cases of osteoporosis or at high risk for fracture should have regular bone mineral density tests. For patients eligible for Medicare, routine testing is allowed once every 2 years. The testing frequency can be increased to one year for patients who have rapidly progressing disease, those who are receiving or discontinuing medical therapy to restore bone mass, or have additional risk factors. Electronically signed by: Wally Arzola MD 04/16/2024 03:44 PM CHEN GLASS
--- OUTSIDE RECORDS SUMMARY | 2024-04-22 19:36 | XMS_ITS ---
Author Organization Jose Kinney III, MD Address [address] [place] [address] Care Team Providers Care Landscape Contractor Name Role Phone AUGUSTINE NORTON MD, ELIAS Primary Care Provider Jose Gamble [phone] REASON FOR VISIT Followup Encounters Encounter Location Date Provider Diagnosis Jose Kinney III, MD [address] [place] [address] [place] [address] 03/20/2023 Jose Kinney Plan Of Treatment Next Appt Details Provider Name:Jose Kinney, 05/01/2024 11:00:00 AM, [address] [place] [address] [address], [place], [address], Progress Notes * Ashley PATTERSONOB:1955 (68 yo F)Acc No.[id number]:03/20/2023 Progress Notes Patient:?Thuy PATTERSON Provider:?Jose Kinney MD :1955???Age:67 Y???Sex:Female D ate:03/20/2023 Address:[address], [address] , [facility] Pcp:ELIAS NORTON MD Subjective: * Chief Complaints: * ???1. Followup. * Medical History:? Objective: * Vitals:? Assessment: Plan: * Treatment: * Images: * The named appointment provid er may or may not be the originator of this progress note, and it is not deemed complete until electronically signed by the appointment provider. Sign off status: Pending * Provider:?Jose Kinney MD Date:?11/2022 Generated for Quintin baltazar/Denise/Crow on:?04/22/2024 07:36 PM EST
--- OUTSIDE RECORDS SUMMARY | 2024-04-22 19:36 | XMS_ITS ---
Author Organization Jose Kinney III, MD Address [address] [place] [address] Care Team Providers Care Paint Sprayer Sandblaster Name Role Phone AUGUSTINE NORTON MD, ELIAS Primary Care Provider Jose Gamble [phone] REASON FOR VISIT Followup Encounters Encounter Location Date Provider Diagnosis Jose Kinney III, MD [address] [place] [address] [place] [address] 03/24/2024 Jose Kinney Plan Of Treatment Next Appt Details Provider Name:Jose Kinney, 05/01/2024 11:00:00 AM, [address] [place] [address] [address], [place], [address], Progress Notes * Ashley PATTERSONOB:1955 (68 yo F)Acc No.[id number]:03/24/2024 Progress Notes Patient:?Thuy PATTERSON Provider:?Jose Kinney MD :1955???Age:68 Y???Sex:Female D ate:03/24/2024 Address:[address], [address] [facility] Pcp:ELIAS NORTON MD Subjective: * Chief Complaints: * ???1. Followup. * Medical History:? Objective: * Vitals:? Assessment: Plan: * Treatment: * Images: * The named appointment provid er may or may not be the originator of this progress note, and it is not deemed complete until electronically signed by the appointment provider. Sign off status: Pending * Provider:?Jose Kinney MD Date:?03/14 Generated for Quintin baltazar/Denise/Crow on:?04/22/2024 07:36 PM EST
--- OUTSIDE RECORDS SUMMARY | 2024-04-22 19:36 | XMS_ITS ---
Author Organization Jose Kinney III, MD Address [address] [place] [address] Care Team Providers Care Mgmt Analyst Name Role Phone AUGUSTINE NORTON MD, ELIAS Primary Care Provider Jose Gamble [phone] Allergies Allergen (clinical drug ingredient) Drug/Non Drug Allergy documented on EMR Reaction Allergy Type Onset Date Status aspirin Aspirin Unknown Drug Allergy Active REASON FOR VISIT DCIS right breast, Right breast mastectomy Medications Medication SIG (Take, Route, Fr equency, Duration) Notes Start Date End Date Status Acetaminophen ER 650 MG 2 tablets as nee ded Orally every 8 hrs Active Simvastatin 40 MG 1 tablet in the even ing Orally Once a day Active Social History Tobacco Use: Social History Observation Description Date Details (start date - stop date) Never Smoker NA - NA Tobacco Use/Smoking Question Answer Notes Patient is a nonsmoker Additional Findings: Tobacco Non-User Aggressive non-smoker Vital Signs Temperature 97.9 degrees Fahrenheit 03/21/20 23 Blood pressure systolic 118 mm Hg 03/21/20 23 Blood pressure diastolic 66 mm Hg 023 Heart Rate 72 /min 03/21/2023 Height 61 in 03/21/2023 Weight 112 lbs 03/21/2023 BMI 21.16 kg/m2 03/21/2023 Encounters Encounter Location Date Provider Diagnosis Jose Kinney III, MD [address] [place] [address] [place] [address] 03/21/2023 Jose Kinney 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 I do not detect any new primary. Surveillance will continue. Her next mammogram has been scheduled. 03/21/2023 Depression (ICD-10 - F32.9) Her medications have not been changed and she continues to be as depressed as usual. No change in this problem is noted. Her mental status has been stable since her last visit. 03/21/2023 Hyperlipemia (ICD-10 - E78.5) I have recommended her lipids be checked at least once a year. 03/21/2023 Serrated adenoma of colon (ICD-10 - D12.6) A serrated adenoma was found on her colonoscopy in 2017 at [facility] done by Dr. Kyle. I have recommended she have a colonoscopy every 5 years. Plan Of Treatment Medication Medication Name Sig Start Date Stop Date Notes Acetaminophen ER 650 MG 2 tablets as nee ded Orally every 8 hrs Simvastatin 40 MG 1 tablet in the even ing Orally Once a day Next Appt Details Follow Up: 1 Year, Reason: O V no tests Provider Name:Jose Kinney, 05/01/2024 11:00:00 AM, [address] [place] [address] [address] [address], [place], [address], Progress Notes * THEO AshleyOB:1955 (67 yo F)Acc No.[id number]:03/21/2023 Progress Notes Patient:?Thuy Patterson Provider:?Jose Kinney MD :1955???Age:67 Y???Sex:Female D ate:03/21/2023 Address:[address] [place] [address] [address] , [facility] Pcp:ELIAS NORTON MD Subjective: * Chief Complaints: * ???DCIS right breastRight br east mastectomy * HPI: ???COVID-19 Screening:?Questions?Have you experienced fever, chills, cough, sore throat, shortness of breath, difficulty breathing, muscle aches, loss of taste or smell??No ?Have you been exposed to the virus within the last 10 days??No ?Have you travelled internationally in the last 10 days??No ?Have you been exposed to COVID-19 in the past??No ? She returns for ongoing follow-up of her history of breast cancer. Since her last visit she has been healthy and well. She has remained in remission. She is up-to-date with mammography. No new malignancies have been detected. * ROS:?General/Constitutional:?pain?only normal aches and pains.?Chills?denies.?Fatigue?admits.?Fever?denies.?ENT:?Decreased hearing?denies.?Respiratory:?Cough?denies.?Cardiovascular:?Chest pain with exertion?denies.?Dyspnea on exertion?denies.?Shortness of breath?denies.?Gastrointestinal:?Constipation?occasional.?Decreased appetite?denies.?Diarrhea?denies.?Heartburn?denies.?Nausea?denies.?Rectal bleeding?denies.?Vomiting?denies.?Hematology:?bruising?denies.?petechiae?denies.?Swollen glands?none have been noted.?Genitourinary:?Frequent urination?denies.?Musculoskeletal:?Muscle aches?denies.?Painful joints?denies.?Sciatica?denies.?Weakness?denies.?Skin:?Itching?denies.?Rash?denies.?Skin lesion(s)?denies.?Neurologic:?Difficulty speaking?denies.?Dizziness?denies.?Headache?denies.?Low back pain?denies.?Psychiatric:?Depressed mood?denies.? * Medical History:? * Surgical History:?lumpectomy , right breast 07/2009right mastectomy 10/07/2009 * Hospitalization/Major Diagno stic Procedure:?No Hospitalization History. * Family History:?Mother: dece ased.? Her mother is . Her father is alive and well and lives in [place]. she has 10 brothers and sisters without a history of malignancy. * Social History:?Tobacco Use:?Tobacco Use/Smoking?Patient is a?nonsmoker ?Additional Findings: Tobacco Non-User?Aggressive non-smoker ???She is single and has no children and lives with her sister. She was [place]. * Medications:?TakingAcetamino phen ER 650 MG Tablet Extended Release 2 tablets as needed Orally every 8 hrsSimvastatin 40 MG Tablet 1 tablet in the evening Orally Once a dayTaking Acetaminophen ER 650 MG Tablet Extended Release 2 tablets as needed Orally every 8 hrsTaking Simvastatin 40 MG Tablet 1 tablet in the evening Orally Once a dayDiscontinuedVitamin D3 400 UNIT Tablet TAKE DIRECTED ONCE/DAY ORALLY 90 DAYS Oral clonazePAM 0.5 MG Tablet 1 tablet at bedtime Orally twice a daytraZODone HCl 100 MG Tablet 1 tablet at bedtime Orally Once a dayZolpidem Tartrate 10 MG Tablet Oral Medication List reviewed and reconciled with the patientDiscontinued Vitamin D3 400 UNIT Tablet TAKE DIRECTED ONCE/DAY ORALLY 90 DAYS Oral Discontinued clonazePAM 0.5 MG Tablet 1 tablet at bedtime Orally twice a dayDiscontinued traZODone HCl 100 MG Tablet 1 tablet at bedtime Orally Once a dayDiscontinued Zolpidem Tartrate 10 MG Tablet Oral Medication List reviewed and reconciled with the patient * Allergies:?Aspirinno[Allergi es Verified] Objective: * Vitals:?Ht: 61, Wt:112, BMI: 21.16, BP:118/66, HR:72, Temp:97.9. * Examination: ???General Examination: ?GENERAL APPEARANCE:?pleasant, well nourished, well developed, in no acute distress, calm and relaxed , woman.?HEAD:?atraumatic, normocephalic.?EYES:?eomi, perrla, anicteric, conjugate.?EARS:?normal.?NOSE:?septum intact.?ORAL CAVITY:?normal, unremarkable.?NECK/THYROID:?no jugular venous distention, no carotid bruit, thyroid normal.?LYMPH NODES:?no enlarged lymph nodes,spleen normal.?SKIN:?no suspicious lesions, anicteric.?HEART:?no clicks, gallops, murmurs, or rubs, regular rhythm, S1, S2 normal, no s3, or vascular bruits.?LUNGS:?clear to auscultation .?BREASTS:?The right mastectomy site is well-healed with no sign of relapse.? The left breast is unremarkable.?ABDOMEN:?bowel sounds normal, no ascites, no organomegaly, no mass.?RECTAL EXAM:?not examined.?MUSCULOSKELETAL:?extremities unremarkable, no clubbing, cyanosis or edema.?PERIPHERAL PULSES:?normal.?NEUROLOGIC:?alert and oriented, cranial nerves 2-12 grossly intact, deep tendon reflexes 2+ symmetrical, motor strength normal upper and lower extremities, sensory exam intact.?PSYCH:?alert, oriented , affect flat , mood depressed.? 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 I do not detect any new primary. Surveillance will continue. Her next mammogram has been scheduled.?2.?Depression - F32.9, Her medications have not been changed and she continues to be as depressed as usual. No change in this problem is noted. Her mental status has been stable since her last visit.?3.?Hyperlipemia - E78.5, I have recommended her lipids be checked at least once a year.?4.?Serrated adenoma of colon - D12.6, A serrated adenoma was found on her colonoscopy in 2017 at [facility] done by Dr. Kyle. I have recommended she have a colonoscopy every 5 years.? Plan: * Treatment: * Procedure Codes:? * Follow Up:?1 Year (Reason: O V no tests ) * Images: * Sign off status: Completed true * Provider:?Jose Kinney MD Date:?12/2022 Generated for Nancyi delaney/Denise/Luz Mariaitting on:?04/22/2024 07:36 PM EST History and Physical Notes * HPI (History of Present Illness) Category Sub-Category Detail Notes COVID-19 Screening Questions Have you expe rienced fever, chills, cough, sore throat, shortness of breath, difficulty breathing, muscle aches, loss of taste or smell?: No Have you been exposed to the virus withi n the last 10 days?: No Have you travelled internationally in e last 10 days?: No Have you been exposed to COVID-19 in the past?: No Examination Category Sub-Category Detail Notes General Examination GENERAL APPEARANCE: pleasant , well nourished, well developed, in no acute distress, calm and relaxed , woman HEAD: atraumatic, normocep halic EYES: eomi, perrla, anicte gab, conjugate EARS: normal NOSE: septum intact NECK/THYROID: no jugular venous di stention, no carotid bruit, thyroid normal HEART: no clicks, gallops, murmurs, or rubs, regular rhythm, S1, S2 normal, no s3, or vascular bruits LUNGS: clear to auscultatio n ABDOMEN: bowel sounds normal, no ascites, no organomegaly, no mass NEUROLOGIC: alert and oriented, cranial nerves 2-12 grossly intact, deep tendon reflexes 2+ symmetrical, motor strength normal upper and lower extremities, sensory exam intact SKIN: no suspicious lesion s, anicteric PERIPHERAL PULSES: normal BREASTS: The right mastectomy site is well-healed with no sign of relapse. The left breast is unremarkable MUSCULOSKELETAL: extremities unremark able, no clubbing, cyanosis or edema LYMPH NODES: no enlarged lymph no jason,spleen normal RECTAL EXAM: not examined PSYCH: alert, oriented , af fect flat , mood depressed ORAL CAVITY: normal, unremarkable
--- OUTSIDE RECORDS SUMMARY | 2024-04-22 19:37 | XMS_ITS | Patient Health Record ---
Author Organization [facility] Address [address] [place] [address] Care Team Providers Care Produce Department Supervisor Name Role Phone Qian Watts Primary Care Provider Lloyd Corley Jr Unavailable ALLERGIES Allergen (clinical drug ingredient) Drug/Non Drug Allergy documented on EMR Reaction Allergy Type Onset Date Status aspirin Aspirin Unknown Drug Allergy Active REASON FOR REFERRAL No Information MEDICATIONS Medication SIG (Take, Route, Frequency, Duration) Notes Start Date End Date Status Simvastatin 40 MG 1 tablet in the even ing Orally Once a day Active Zolpidem Tartrate 10 MG 1 tablet at bedt tanner as needed Orally Once a day Active Colyte with Flavor Packs 240 GM As directed Orally Over the specified time. for 1 day(s) Active clonazePAM 0.5 MG 1 tablet at bedtime Orally Once a day Active IMMUNIZATIONS Vaccine Route Administration Date Status Comme nts Flu vaccine no Preserv 3 and > Unknown 01/24/2016 Admin istered Influenza Unknown 04/24/2018 Refused SOCIAL HISTORY Tobacco Use: Social History Observation Description Date Details (start date - stop date) Never Smoker NA - NA Sex Assigned At : Social History Observation Description Sex Assigned At Unknown Tobacco Use/Smoking Question Answer Notes Patient is a nonsmoker Alcohol Screen Question Answer Notes Did you have a drink containing alcohol in the p ast year? No Points 0 Interpretation Negative PROBLEMS Problem Type ICD Code Onset Dates Problem Status W/U Status Risk SNOMED Code Notes Problem Colon cancer screening (Z12.11) Active confirmed 112830948 Problem Encounter for other preprocedural examination (Z01.818) Active confirmed 95453167 Problem Tubular adenoma of colon (D12.6) Active confirmed 226024350 Problem Screening for colon cancer (Z12.11) Active confirmed 800615392 Problem High grade dysplasia in colonic adenoma (D12.6) Active confirmed 331840746 PLAN OF TREATMENT Future Test Test Name Order Date COLONOSCOPY 09/13/2016 COLONOSCOPY 04/24/2018 Next Appt Details Provider Name:Lloyd James Jose pederson , 06/05/2024 03:35:00 PM, [address] [facility], [address], [place], [address], Insurance Providers Payer Name Payer Address Payer Phone Subscriber Number Group Number Insured Name Patient Relationship to Insured Coverage Start Date Coverage End Date MEDICARE OF [place] [address] [place] [id number] [phone] [id number] MARSHA VENEGAS Self - patient is the insured MEDICAID OF [facility] [address] [place] [address] [id number] MARSHA VENEGAS Self - patient is the insured MEDICAL (GENERAL) HISTORY Medical History History ICD Code colonoscopy 05-04-2010 colon polyp breast cancer sinus problems anxiety/depression Surgical History Surgery Date(Month/Year) right mastectomy
--- OUTSIDE RECORDS SUMMARY | 2024-04-22 19:37 | XMS_ITS | Patient Health Record ---
Author Organization Jose Kinney III, MD Address [address] [place] [address] Care Team Providers Care Special Education Professional Name Role Phone AUGUSTINE NORTON MD, ELIAS Primary Care Provider Jose Gamble Unavailable [phone] Allergies Allergen (clinical drug ingredient) Drug/Non Drug Allergy documented on EMR Reaction Allergy Type Onset Date Status aspirin Aspirin Unknown Drug Allergy Active Reason For Referral No Information Medications Medication SIG (Take, Route, Fr equency, [...] nonsmoker Additional Findings: Tobacco Non-User Aggressive non-smoker Alcohol Screen Question Answer Notes Did you have a drink containing alcohol in the p ast year? No Points 0 Interpretation Negative Problems Problem Type SNOMED Code ICD Code Onset Dates Problem Status W/U Status Risk Notes Problem 867115140 DCIS (ductal carcinoma in situ) (D05.10) Active confirmed There is no sign of recurrent breast cancer at this time. I do not detect any new primary. Surveillance will continue. Her next mammogram has been scheduled. Problem 22089245 Depression (F32.9) Active confirmed Her medications have not been changed and she continues to be as depressed as usual. No change in this problem is noted. Her mental status has been stable since her last visit. Problem 05482843 Hyperlipemia (E78.5) Active confirmed I have recommended her lipids be checked at least once a year. Problem 907233855 Serrated adenoma of colon (D12.6) Active confirmed A serrated adenoma was found on her colonoscopy in 2016 at [facility] done by Dr. Kyle. I have recommended she have a colonoscopy every 5 years. Plan Of Treatment Pending Test Test Name Order Date MAMMOGRAM DIGITAL BILATERAL SCREEN 07/04 MAMMOGRAM DIGITAL SCREEN LEFT UNI 2017 Next Appt Details Provider Name:Jose Kinney, 05/01/2024 11:00:00 AM, [address] [place] [address] [address], [place], [address], Insurance Providers Payer Name Payer Address Payer Phone Subscriber Number Group Number Insured Name Patient Relationship to Insured Coverage Start Date Coverage End Date MEDICARE NGS [address] [place] [address] [id number] Thuy Patterson Self - patient is the insured MEDICAID [address] [place] DAV[place] [id number] Thuy Patterson Self - patient is the insured Medical (General) History Medical History History ICD Code depression hyperlipidemia [id number] DCIS Surgical History Surgery Date(Month/Year) lumpectomy, right breast 07/2009 right mastectomy 10/07/2009
== END 2024-04-16 13:38 | disposition home or self-care (01) ==
LOC: HO.MAMMO 13:37
PROVIDERS: PCP Internal Medicine; Visit Provider Internal Medicine
DX: Z12.31 Encounter for screening mammogram for malignant neoplasm of breast (principal); Z13.820 Encounter for screening for osteoporosis; Z78.0 Asymptomatic menopausal state
CPT/HCPCS: 77063; 77067; 77080

== ENCOUNTER → 2024-04-16 13:45 | Outpatient (BNV) | payer OTHER, SELFPAY | PROVIDERS: PCP Internal Medicine; Visit Provider Internal Medicine | DX: Z12.31 Encounter for screening mammogram for malignant neoplasm of breast (principal) | CPT/HCPCS: 77063; 77067 ==

== ENCOUNTER 2024-07-01 08:26 | Day surgery (SDC) | payer MEDICARE, MEDICAID, SELFPAY ==
--- NOTE | 2024-06-27 09:17 | HO.ANESPROP2 ---
HPI - Anesthesia Eval Consult details Narrative: 68yo F for Colonoscopy PMFSH Active Problems Active Problems: All Active Problems Tubular adenoma of colon (Acute) Physical exam (Acute) Hypovitaminosis D (Acute) Hyperkalemia (Acute) Patellofemoral arthritis of right knee (Acute) Right knee pain (Acute) Effusion, right knee (Acute) Ductal carcinoma in situ (DCIS) of right breast (Acute) Impaired glucose tolerance (Acute) Insomnia (Acute) Anxiety (Acute) Dyslipidemia (Acute) Past Medical History Medical History (Updated 06/26/24 @ 10:34 by Venecia Valadez RN) High cholesterol Effusion, right knee Mild major depression, single episode Impaired glucose tolerance Insomnia Anxiety Dyslipidemia Ductal carcinoma in situ (DCIS) of right breast Family History Family History (Updated 02/25/24 @ 11:21 by Qian Armenta MD) Mother Diabetes Father No problems noted. Brother No problems noted. Brother No problems noted. Brother No problems noted. Sister No problems noted. Surgical History Surgical History (Updated 06/26/24 @ 10:39 by Venecia Valadez RN) Hx of left breast biopsy Hx of right mastectomy Hx of breast surgery H/O colonoscopy History of lumpectomy of right breast History of total abdominal hysterectomy Social History Social History Household Members: None Household Members Other:: sister Housing: Apartment Do you presently have visiting nurse or other home services: No Alcohol intake: never Patient Tobacco Use Status: Never used Tobacco e-Cigarette/Vaping Use: Never Used Second Hand Smoke Exposure: No service: No Current occupational status: retired Current occupational exposures/hazards: No Cognitive needs: No Hearing needs: No Vision needs: Yes Meds Allergies Allergy/AdvReac Type Severity Reaction Status Date / Time aspirin [Aspirin] Allergy Intermediate GI UPSET Verified 02/25/24 11:15 Exam Height,Weight and Vital Signs: Height 5 ft 1 in Weight 48.081 kg Assessment and Plan Assessment Anesthesia Assessment: Chart Reviewed
[2024-07-01 09:07] VITALS: BP 117/54; PULSE 63; RESP 14; TEMP 36.6; O2SAT 100
[2024-07-01] MEDS: Lactated Ringers 1,000 ML 100 ML IVCONT (09:17)
--- NOTE | 2024-07-01 09:32 | MHC.SHP ---
Pre-Procedural Eval Section A - 24 Hr Update-Section A only Date of Service: 07/01/24 Section B - Complete if H&P > 30 days Chief Complaint: screening Details of Present Illness: see H&P no changes Relevant Family History (Specify if Yes): No Relevant Social History: None Present Medications: see Short Stay Collaborative assessment Medical History: No relevant PMH History of Previous Operations: No relevant previous surgery Allergies: Allergies Allergy/AdvReac Type Severity Reaction Status Date / Time aspirin [Aspirin] Allergy Intermediate GI UPSET Verified 07/01/24 08:58 Review of Systems Sugical H&P ROS: Negative: Constitution, Cardiovascular, Respiratory, Neurological, Psychiatric, Hem-Onc, Allergic/Immunologic, Gastrointestinal, Genitourinary, Musculoskeletal, Integumentary, Endocrine and Eyes/Ears/Nose/Throat Exam Surgical H&P Exam: Normal: HEENT, Normal: Heart, Normal: Lungs, Normal: Extremities, Normal: Abdomen, Normal: Skin and Normal: Neurological Plan Diagnosis/Plan: Unchanged I have reviewed the history and physical and performed a pertinent physical examination on my patient. No changes have occurred unless specified. Time Spent With Patient Time: Total time managing care of this patient today ____ minutes.
[2024-07-01 10:16] VITALS: BP 96/46; PULSE 65; RESP 16; TEMP 36.1; O2SAT 100
[2024-07-01 10:31] VITALS: BP 113/60; PULSE 64; RESP 18; TEMP 36.6; O2SAT 100
--- NOTE | 2024-07-01 11:27 | OP_ITS ---
DATE OF SERVICE: 07/01/2024 SURGEON: Lloyd Kyle MD INDICATIONS: Colon cancer screening. PREOPERATIVE DIAGNOSIS: POSTOPERATIVE DIAGNOSIS: PROCEDURE PERFORMED: Colonoscopy to the cecum. ESTIMATED BLOOD LOSS: COMPLICATIONS: ANESTHESIA: Monitored anesthesia care. ASSISTANTS: SPECIMENS: DESCRIPTION OF PROCEDURE: History and physical performed. The risks and benefits of the procedure explained to the patient. Informed consent was obtained. The patient was placed in the left lateral decubitus position. A digital rectal exam was performed and was found to be normal. The Olympus pediatric video colonoscope was introduced into the rectum and advanced to the cecum. The cecum was identified by transillumination, palpation, and identification of ileocecal valve. Examination was performed. The scope was removed. She tolerated the procedure well and was taken to recovery in stable condition. FINDINGS: The terminal ileum was not examined. The visualized colonic mucosa was normal. The quality of the prep was good. No polyps were identified. Retroflexed examination showed small internal hemorrhoids. IMPRESSION: Normal colonoscopy. RECOMMENDATION: 1. Follow up as needed. 2. Repeat colonoscopy is recommended in 10 years for average-risk individuals. MD RAMÓN Landaverde/PIPE / [phone]
== END 2024-07-01 11:05 | disposition home or self-care (01) ==
PROVIDERS: PCP Internal Medicine; Visit Provider Internal Medicine Gastroenterology
PROC: 0DJD8ZZ Inspection of Lower Intestinal Tract, Via Natural or Artificial Opening Endoscopic (ICD-10-PCS; CPT 45378; principal; 2024-07-01 10:00)
DX: Z12.11 Encounter for screening for malignant neoplasm of colon (principal); Z86.0101 Personal history of adenomatous and serrated colon polyps; K64.8 Other hemorrhoids; R73.9 Hyperglycemia, unspecified; E78.5 Hyperlipidemia, unspecified; Z85.3 Personal history of malignant neoplasm of breast; F32.A Depression, unspecified; F41.9 Anxiety disorder, unspecified; Z79.899 Other long term (current) drug therapy; Z88.6 Allergy status to analgesic agent
CPT/HCPCS: G0105; J2003; J2704

== ENCOUNTER 2025-03-05 10:09 | Outpatient (AMB) | payer MEDICARE, MEDICAID, SELFPAY ==
--- NOTE | 2025-03-05 10:18 | A.OFFPC_ITS ---
Vital Signs 03/05/25 10:20 Height 5 ft 1 in Weight 106 lb BMI 20.0 BP 110/66 Blood Pressure Location Lt brachial Position Sitting Pulse 61 Pulse Source Pulse Oximeter Temp 97.1 F Temp Source Temporal Artery Scan Pulse Oximetry (%) 97 Oxygen Delivery Method Room Air Intake Visit Reasons: Annual Exam Intake Note: Patient is here today for a physical. Car Conditioner Required: No Water Pumping Station Engineer: Present Accompanied by: Sister Allergies aspirin (Aspirin) Allergy (Intermediate, Verified 03/05/25 10:42) GI UPSET Medication List - Last Reconciled 03/05/25 by Qian Armenta MD acetaminophen ER 1,300 mg (2 x 650 mg) PO Q8H PRN 30 days cholecalciferol (vitamin D3) 50 mcg PO DAILY 90 days simvastatin 40 mg PO BEDTIME sodium polystyrene sulfonate 15 grams PO DAILY Tobacco use date assessed: 03/05/25 Fall risk assessment: No Falls in past year Last assessed Fall Risk: 03/05/25 Dental Screening Dental Screen Date: 03/05/25 Did you have a dental visit in the last 12 months?: Yes Did you have a dental problem in the last 6 months where you did not have access to dental care?: No Was dental information given to patient?: Patient has dentist HPI HPI Comments History of Present Illness Details The patient is a 69-year-old female presenting for a physical examination and preventative care, including a flu vaccination. The patient has a history of breast cancer, for which she underwent a right mastectomy. She also has a history of hysterectomy performed in the 1980s, with complete removal of the uterus and ovaries. The patient reports an allergy to aspirin, which causes gastrointestinal upset. She is currently taking simvastatin 40 mg for cholesterol management and vitamin D supplementation. Her family history includes a mother who had diabetes and lived until the age of 96. The patient does not smoke or consume alcohol and denies any symptoms of depression. Her last colonoscopy was in 2018, and the next is scheduled for . The most recent bone density scan in 2023 showed osteopenia, and the next scan is due next year. Her last mammogram was in April, with the next one scheduled for this April. [facility] Medical History High cholesterol Effusion, right knee Mild major depression, single episode Impaired glucose tolerance Insomnia Anxiety Dyslipidemia Ductal carcinoma in situ (DCIS) of right breast Surgical History Hx of left breast biopsy Hx of right mastectomy Hx of breast surgery H/O colonoscopy History of lumpectomy of right breast History of total abdominal hysterectomy Family History Mother Diabetes Father No problems noted. Brother No problems noted. Brother No problems noted. Brother No problems noted. Sister No problems noted. Social History Household Members: None Household Members Other:: sister Housing: Apartment Do you presently have visiting nurse or other home services: No Alcohol intake: never Patient Tobacco Use Status: Never used Tobacco e-Cigarette/Vaping Use: Never Used Second Hand Smoke Exposure: No service: No Current occupational status: retired Current occupational exposures/hazards: No Cognitive needs: No Hearing needs: No Vision needs: Yes Questionnaire PHQ-9 Over the last 2 weeks, how often have you been bothered by any of the following problems? 1. Little interest or pleasure in doing things: not at all 2. Feeling down, depressed, or hopeless: not at all 3. Trouble falling or staying asleep, or sleeping too much: not at all 4. Feeling tired or having little energy: not at all 5. Poor appetite or overeating: not at all 6. Feeling bad about yourself - or that you are a failure or have let yourself or your family down: not at all 7. Trouble concentrating on things, such as reading the newspaper or watching television: not at all 8. Moving or speaking so slowly that other people could have noticed. Or the opposite - being so fidgety or restless that you have been moving around a lot more than usual: not at all 9. Thoughts that you would be better off or of hurting yourself in some way: not at all Total score: 0 Depression Screening Interpretation: Negative Depression Screening Done: Yes 31233 - PHQ-9 Billing: Yes Source: Developed by Drs. Jose Arriaga, Concepción Irizarry, Alexis Bynum and colleagues, with an educational arvind from [employer]. Thrive Questionnaire Date Thrive assessed: 03/05/25 I am a: Patient What is your living situation today?: I have a steady place to live Within the past 12 months, did the food you bought not last and you didn't have the money to get more?: Never true Within the past 12 months, did you worry whether your food would run out before you got money to buy more?: Never true Do you have trouble paying for medicines?: No Do you have trouble getting transportation to medical appointments?: No Do you have trouble paying your heating and electricity bill?: No Do you have trouble taking care of your child, family member or friend?: No Do you have trouble with day-to-day activities such as bathing, preparing meals, shopping, managing finances, etc.?: No Are you currently unemployed and looking for a job?: No Are you interested in more education?: No Please select the resources that you would like help with: None Currently or been in a relationship where the following occur: No concerns reported THRIVE Score: 0 AUDIT C Alcohol Use Questionnaire (AUDIT-C) 1. How often do you have a drink containing alcohol?: Never 3. How often do you have six or more drinks on one occasion?: Never Total Score: 0 Score Reviewed/Action Taken: No SOLOMON-7 AMB Questionnaire SOLOMON-7 Date SOLOMON - 7 assessed: 03/05/25 Feeling nervous, anxious, or on edge: 0 = Not at all Not being able to stop or control worryin = Not at all Worrying too much about different things: 0 = Not at all Trouble relaxin = Not at all Being so restless that it is hard to sit still: 0 = Not at all Becoming easily annoyed or irritable: 0 = Not at all Feeling afraid as if something awful might happen: 0 = Not at all Total SOLOMON-7 score (0-4 normal; 5-9 mild; 10-14 moderate; 15-21 severe): 0 Source: Developed by Drs. Jose Arriaga, Concepción Irizarry, Alexis Bynum and colleagues, with an educational arvind from [employer]. SOLOMON-7 Assessment Billing SOLOMON-7 Assessment Tool: SOLOMON-7 Assessment 13813 Review of Systems Const All systems reviewed & are unremarkable except as noted in HPI and below Card Denies chest pain at rest, Denies chest pain with activity, Denies edema, Denies irregular heart rhythm, Denies claudication, Denies dyspnea, Denies dyspnea on exertion, Denies orthopnea, Denies paroxysmal nocturnal dyspnea and Denies slow heart rate Resp Denies cough, Denies dyspnea and Denies dyspnea on exertion GI Denies abdominal pain, Denies change in bowel habits, Denies excessive flatus, Denies nausea and Denies vomiting Physical exam (Primary Care) Vital Signs: Last Vital Signs Temp 97.1 F 03/05/25 10:20 Pulse 61 03/05/25 10:20 BP 110/66 03/05/25 10:20 Pulse Ox 97 03/05/25 10:20 Oxygen Delivery Method Room Air 03/05/25 10:20 BMI result Body Mass Index 20.0 Tobacco/Smoking Status: Tobacco use Status Tobacco use date assessed 03/05/25 03/05/25 10:24 Patient Tobacco Use Status Never used Tobacco 03/05/25 10:19 e-Cigarette/Vaping Use Never Used 03/05/25 10:19 PHQ-9: PHQ-9 Score PHQ-9: Total score 0 03/05/25 11:09 Depression Screening Interpretation: Negative Thrive Assessment: Date of Thrive Assessment Date Thrive assessed 03/05/25 03/05/25 10:19 Currently or been in a relationship where the following occur: No concerns reported [facility] Head: Yes normal to inspection, Yes normocephalic and Yes atraumatic Ears: external ears normal Eyes General: appearance normal, both eyes and all related structures Eyelids: Yes eyelids normal Conjunctivae: conjunctivae normal Neck Neck: Yes normal visual inspection and Yes supple Resp Effort & Inspection: normal respiratory effort Auscultation: clear to auscultation bilaterally Cardio Jugular venous distension: no JVD Rate: regular rate Rhythm: regular rhythm Heart sounds: S1 normal heart sound present and S2 normal heart sound present GI Inspection: Yes normal to inspection Palpation (GI): Soft to palpation and nontender Auscultation: normal bowel sounds Skin General skin exam: no rashes or lesions noted Neuro General: no focal motor deficits Extrem General: Yes full ROM Psych Appearance: grossly normal Office Procedures Flu Questionnaire Does the patient have a severe egg allergy?: No Does the patient have severe life threatening allergies?: No Does the patient have a fever or illness today?: No Has the patient ever had Guillain-Friant Syndrome?: No Has the patient ever had any past reaction to a flu shot?: No Immunizations Fluarix [id number] (PF) 45 mcg (15 mcg x 3)/0.5 mL IM syringe Performing Provider: Qian Armenta MD [facility] [place] [facility] Administered by: KEV Khoury on 03/05/25 11:09 Dose Route Admin Location Dispensed Lot Number Expiration Date NDC Cottage Attendant 0.5 mL IM Left Deltoid 0.5 mL [id number] 11/10/25 08137-621-31 [employer] VIS Given Date VIS Provided VIS Publication Date 03/05/25 Single Vaccine 24 Eligibility Eligibility Date Funding Source Not [facility] Eligible 03/05/25 Private Coding Level of Care Code Est Pt Prev Care >65y(73744) Diagnoses Physical exam Z00.00 Additional Codes SOLOMON-7 Assessment Billing - SOLOMON-7 Assessment Tool: SOLOMON-7 Assessment 72701 ([id number]) PHQ-9 - 96450 - PHQ-9 Billing: Yes ([id number]) Time Spent (min) 30 Assessment & Plan Assessment & Plan (1) Physical exam: Code(s): Z00.00 - Encounter for general adult medical examination without abnormal findings Category: Medical Plan Plan Patient was informed and verbally consented to the use of an ambient scribe for clinic note documentation during this visit. 1. Encounter for general adult medical examination without abnormal findings Z00.00 The patient received a flu vaccination during this visit as part of her preventative care regimen. Orders: Orders Comprehensive [place]. Panel Fast Today Z00.00 - Encounter for general adult medical examination without abnormal findings Influenza [id number] Immunization 03/05/25 Z23 - Encounter for immunization Lipid Panel Today E78.5 - Hyperlipidemia, unspecified, Z00.00 - Encounter for general adult medical examination without abnormal findings Vitamin D 25-OH Total Today E55.9 - Vitamin D deficiency, unspecified
[2025-03-05 10:20] VITALS: BP 110/66; PULSE 61; TEMP 36.2; O2SAT 97
--- OUTSIDE RECORDS SUMMARY | 2025-03-05 11:59 | XMS_ITS | Clinical Summary ---
Author Organization [facility] Address [address] [place] [address] Phone Care Team Providers Care Skein Bleacher Name Role Phone Unavailable Primary Care Provider Unavailabl e Allergies Active Allergy Reactions Criticality Noted Date Comments Aspirin 01/17/2023 Other reaction(s): Unknown Medications simvastatin (ZOCOR) 40 MG tablet Take 40 mg by mouth every night Active Cholecalciferol (Vitamin D3) 10 MCG (400 UNIT) capsule TAKE DIRECTED ONCE/DAY ORALLY 90 DAYS Oral Active Active Problems Problem Noted Date Diagnosed Date Vitamin D deficiency 05/09/2023 Hyperkalemia 05/09/2023 Effusion of joint of right knee 05/09/2023 Pain in right knee 05/09/2023 Solid ductal carcinoma in situ of breast <Right side> 05/09/2023 Mild major depression 05/09/2023 Insomnia 05/09/2023 Dyslipidemia 05/09/2023 Family History Medical History Relation Comments Diabetes Father Diabetes Mother Heart disease Mother Hypertension Mother Kidney disease Mother Stroke Mother Cancer Sister Relation Status Comments Father Mother Sister Social History Tobacco Use Types Packs/Day Years Used Date Smoking Tobacco: Never Smokeless Tobacco: Never Tobacco Cessation:Counseling Given: Not Answered Alcohol Use Standard Drinks/Week Comments Never 0 (1 standard drink = 0.6 oz pur e alcohol) Comments Unknown Sex and Gender Information Value Date Recorded Sex Assigned at Not on file Legal Sex Female 1:01 PM EDT Gender Identity Not on file Sexual Orientation Not on file Last Filed Vital Signs Vital Sign Reading Time Taken Comments Blood Pressure 120/60 08/23/2023 3:26 PM EDT Pulse 72 08/23/2023 3:26 PM EDT Temperature - - Respiratory Rate - - Oxygen Saturation - - Inhaled Oxygen Concentration - - Weight 50.3 kg (111 lb) 08/23/2023 3:26 PM EDT Height - - Body Mass Index - - Plan of Treatment Health Maintenance Due Date Last Done Comments Breast Cancer Screening 1955 Pneumococcal Vaccine: 50+ Ye ars (1 of 2 - PCV) 1976 Colorectal Cancer Screening: Annual FOBT 2006 Colorectal Cancer Screening: Colonoscopy 2006 Colorectal Cancer Screening: Sigmoidoscopy 2006 Influenza Vaccine (#1) 2025 Hepatitis B Vaccine Aged Out No longe r eligible based on patient's age to complete this topic Insurance Medicare Medicaid [place]
== END 2025-03-05 11:05 | disposition home or self-care (01) ==
LOC: HO.HMCH 10:10
PROVIDERS: PCP Internal Medicine; Visit Provider Internal Medicine
DX: Z23 Encounter for immunization (principal)

== ENCOUNTER → 2025-03-05 10:09 | Outpatient (BNVA) | payer MEDICARE, MEDICAID, SELFPAY | PROVIDERS: PCP Internal Medicine; Visit Provider Internal Medicine | DX: Z00.00 Encounter for general adult medical examination without abnormal findings (principal); E78.5 Hyperlipidemia, unspecified; Z23 Encounter for immunization; E55.9 Vitamin D deficiency, unspecified | CPT/HCPCS: 90471; 90656; 96127; 99397 ==

== ENCOUNTER 2025-03-06 09:01 | Outpatient (REF) | payer MEDICARE, MEDICAID, SELFPAY ==
--- OUTSIDE RECORDS SUMMARY | 2025-03-06 09:51 | XMS_ITS | Clinical Summary ---
Author Organization [facility] Address [address] [place] [address] Phone Care Team Providers Care Stepdown Nurse Name Role Phone Unavailable Primary Care Provider [...]
[2025-03-06 10:34] LABS: Alanine Aminotransferase 15 U/L (0-31); Albumin Level 4.2 g/dL (3.5-5.0); Alkaline Phosphatase 47 U/L (39-117); Anion Gap 11 (12-20); Aspartate Amino Transferase 18 U/L (5-31); Blood Urea Nitrogen 14 mg/dL (9-16); Calcium 8.9 mg/dL (8.4-10.2); Carbon Dioxide 26 mmol/L (22-29); Chloride 109 mmol/L (96-108); Cholesterol 161 mg/dL (<200); Estimated Glomerular Filt Rate > 60; HDL Cholesterol 43 mg/dL (>40); Potassium 5.0 mmol/L (3.3-5.1); Sodium 141 mmol/L (135-145); Total Protein 6.4 g/dL (6.5-8.0); Triglycerides 74 mg/dL (<150)
== END 2025-03-06 09:02 | disposition home or self-care (01) ==
LOC: HO.LAB 09:01
PROVIDERS: PCP Internal Medicine; Visit Provider Internal Medicine
DX: Z00.00 Encounter for general adult medical examination without abnormal findings (principal); E78.5 Hyperlipidemia, unspecified; E55.9 Vitamin D deficiency, unspecified
CPT/HCPCS: 36415; 80053; 80061; 82306

== ENCOUNTER 2025-04-17 13:49 | Outpatient (REF) | payer MEDICARE, MEDICAID, SELFPAY ==
--- NOTE | ~2025-04-17 | MM_ITS ---
EXAMINATION: MM SCREENING DIGITAL BREAST TOMOSYNTHESIS, LEFT CLINICAL INFORMATION: Screening. Asymptomatic. Right mastectomy. COMPARISON: Mammography: This study is compared with prior exams dating back to TECHNIQUE: Digital breast tomosynthesis is performed in both the craniocaudal and mediolateral oblique views along with computer-aided detection (CAD). Synthesized 2D images are generated from the tomosynthesis. FINDINGS: The breasts are heterogeneously dense, which may obscure small masses. There are no significant masses, abnormal calcifications, or other abnormalities. MM/MM tomosynthesis screening LT IMPRESSION: No mammographic evidence of malignancy. ASSESSMENT: BI-RADS Category 1: Negative RECOMMENDATION: Routine annual mammography screening. 1 year F/U This examination should not preclude the clinical evaluation of a suspicious palpable abnormality. This patient's information was entered into a reminder system with a target due date for their next mammogram. Electronically signed by: Noy Martinez DO 04/20/2025 12:56 PM CHEN
== END 2025-04-17 13:50 | disposition home or self-care (01) ==
LOC: HO.MAMMO 13:49
PROVIDERS: PCP Internal Medicine; Visit Provider Internal Medicine
DX: Z12.31 Encounter for screening mammogram for malignant neoplasm of breast (principal)
CPT/HCPCS: 77063; 77067

== ENCOUNTER → 2025-04-17 14:00 | Outpatient (BNV) | payer MEDICARE, MEDICAID, SELFPAY | PROVIDERS: PCP Internal Medicine; Visit Provider Internal Medicine | DX: Z12.31 Encounter for screening mammogram for malignant neoplasm of breast (principal) | CPT/HCPCS: 77063; 77067 ==